=== PATIENT | female | born 1945 | race Caucasian/White ===

== ENCOUNTER 2023-08-23 14:54 | Outpatient (AMB) | payer MEDICARE, OTHER, SELFPAY ==
[2023-08-23 14:59] VITALS: BP 140/62; PULSE 63; RESP 12; O2SAT 93; BMI 31.2
--- NOTE | 2023-08-23 14:59 | A.OFFVIS_ITS ---
Intake Vital Signs 08/23/23 14:59 Height 5 ft 3 in Weight 176 lb BMI 31.2 BP 140/62 H Blood Pressure Location Lt brachial Position Sitting Respiration 12 Pulse 63 Pulse Source Pulse Oximeter Pulse Oximetry (%) 93 Oxygen Delivery Method Room Air Intake Visit Reasons: Shortness of breath Allergies naproxen [From Aleve] Adverse Reaction (Severe, Verified 08/23/23 15:01) urticaria Penicillins Adverse Reaction (Severe, Verified 08/23/23 15:01) urticaria Medication List - Last Reconciled 08/23/23 by Tonia Nick LPN aspirin (Adult Aspirin Regimen) 81 mg PO DAILY celecoxib 200 mg PO DAILY duloxetine 60 mg PO DAILY ferrous sulfate (FeroSul) 325 mg PO DAILY lorazepam 1 mg PO DAILY PRN losartan 25 mg PO DAILY multivitamin 1 tab PO DAILY omeprazole 40 mg PO DAILY tiotropium bromide 2.5 mcg/actuation (Spiriva Respimat) 2 puffs inhalation DAILY HPI HPI Comments History of Present Illness Details The patient is here for pulmonary evaluation. The patient is a 78 year woman with a known history of tobacco dependency quit more than 20 years ago who apparently was in usual state health until back in June which she underwent an elective back surgery. Postoperatively the patient was noted to be significantly hypoxic down to 70% and she did have a medical consultation. Apparently she has had episodes of hypoxia like this in the past after previous surgeries. During that hospitalization she did undergo a CTA that I personally reviewed with the patient. The patient did have moderate facet M a noted in addition to that did have significant ground-glass opacities and hazy opacities bilaterally but also more dense airspace disease suggesting pneumonia and a right lower lobe area. This is very suspicious for an aspiration event suggesting aspiration pneumonitis. In addition to that could have been iatrogenic from medications or anesthesia per the patient did recover she was discharged on oxygen although she was reluctant to use it so therefore she had a company pick it up. She still has shortness of breath with activity. She was placed on Spiriva she may have been taking it role wrong where she actually ran out of the medication in 2 weeks instead of in 4 weeks. The patient has not had any pulmonary function studies at this time. Her exam is significant only for coarse crackles at the bases. Not clear if this crackles are related to her postoperative. Or if she had the even previous to that. Since the patient is 2 months out of her surgery will be reasonable to try low-dose steroids in case she still has evidence of pneumonitis that is impacting her gas exchange. Therefore, will start her on low-dose prednisone at this time we did go for 6 minutes walk test the patient did desaturate down to about 86% have checked to his significant. The patient did recover quickly after stopping walking and she did improved to the low 90s mid 90s. Still the patient is reluctant to go back on oxygen. Explained to her the risk of not using oxygen in the patient understands the risks that she is taking. We will request an overnight oximetry however to address the question if she needs oxygen with sleep. She may consider using in this fashion unfortunately to the patient appears to have a foreign body that is related to the surgical intervention. The patient will be talking to her nurse surgeon to see what is the best approach to address this foreign body. The patient is concerned because her significant adverse effects to general anesthesia. [facility] Medical History (Updated 08/23/23 @ 20:23 by Murphy Santos MD) Hypoxia Pneumonitis COPD (chronic obstructive pulmonary disease) Review of Systems Const Denies fever(s) Eyes Denies change in vision ENT Reports dry mouth and Reports hoarseness Card Denies chest pain and Reports dyspnea on exertion Resp Reports cough, Reports dyspnea on exertion and Denies wheezing GI Reports no additional complaints Musc Reports abnormal gait and Reports back pain Skin/Breast Denies rash Neuro Reports abnormal gait Fredi/Lymph Denies easy bruising and Denies lymphadenopathy Aller/Immun Denies wheezing Physical Exam Vital Signs: Last Vital Signs Pulse 63 08/23/23 14:59 Resp 12 08/23/23 14:59 BP 140/62 H 08/23/23 14:59 Pulse Ox 93 08/23/23 14:59 Oxygen Delivery Method Room Air 08/23/23 14:59 BMI result Body Mass Index 31.2 Const General: comfortable HEENT Head: Yes normocephalic Neck Neck: Yes supple Chest Chest palpation & inspection: normal inspection of the chest Resp Effort & Inspection: normal respiratory effort Auscultation: rales bilateral at the base, no rhonchi, no wheezes and diminished lung sounds Cardio Heart sounds: S1 normal heart sound present and S2 normal heart sound present GI Palpation (GI): Soft to palpation Skin General skin exam: no rashes or lesions noted Extrem General: Yes no clubbing, cyanosis or edema Assessment & Plan Assessment & Plan (1) COPD (chronic obstructive pulmonary disease): Code(s): J44.9 - Chronic obstructive pulmonary disease, unspecified Qualifiers: COPD type: emphysema Emphysema type: centrilobular Qualified Code(s): J43.2 - Centrilobular emphysema (2) Pneumonitis: Code(s): J98.4 - Other disorders of lung (3) Hypoxia: Code(s): R09.02 - Hypoxemia Plan recommend oxygen supplementation, but the pt declines at this time stop Spiriva ASHLEE as needed low dose prednisone 10mg daily 20 days overnight oximetry PFTs F/U 6-8 weeks Orders: Orders Overnight Pulse Oximetry Today J44.9 - Chronic obstructive pulmonary disease, unspecified PFT pulmonary function test Today J43.2 - Centrilobular emphysema Medications: New prednisone 10 mg PO DAILY 20 tabs 1RF 20 days albuterol sulfate 90 mcg/actuation 2 inhalations inhalation Q6H PRN 18 grams 12RF shortness of breath or wheezing 30 days J44.9 - Chronic obstructive pulmonary disease, unspecified Coding Level of Care Code New Pt Level 4 (93914) Diagnoses Centrilobular emphysema J43.2 COPD type: emphysema Emphysema type: centrilobular Pneumonitis J98.4 Hypoxia R09.02 Time Spent (min) 45
== END 2023-08-23 15:44 | disposition home or self-care (01) ==
PROVIDERS: PCP Internal Medicine; Referring Provider Internal Medicine; Visit Provider Hospitalist
DX: J43.2 Centrilobular emphysema (principal); J98.4 Other disorders of lung; R09.02 Hypoxemia
CPT/HCPCS: 99204

== ENCOUNTER → 2023-08-23 14:54 | Outpatient (BNVA) | payer MEDICARE, OTHER, SELFPAY | PROVIDERS: PCP Internal Medicine; Referring Provider Internal Medicine; Visit Provider Hospitalist | DX: J43.2 Centrilobular emphysema (principal); J98.4 Other disorders of lung; R09.02 Hypoxemia | CPT/HCPCS: 99202 ==

== ENCOUNTER 2023-09-27 10:37 | Outpatient (REF) | payer MEDICARE, OTHER, SELFPAY ==
--- NOTE | 2023-09-27 11:14 | PFT_ITS ---
Flows: FEV1: 101 % of predicted at 1.83 L FVC: 134 % of predicted at 2.88 L FEV1/FVC: 64 % Bronchodilator response: Present Volumes: Total lung capacity: 75 % of predicted at 3.52 L Residual volume: 48 % of predicted at 1.01 L Slow vital capacity: 100 % of predicted at 2.51 L Expiratory reserve volume: 61 % of predicted at 0.37 L Diffusion capacity: Severely decreased, adjusts to being moderately decreased after correction for alveolar ventilation. Impression: Mild obstructive and mild restrictive ventilatory defect with positive bronchodilator response. Decreased diffusion capacity suggests emphysema. MTDD
== END 2023-09-27 10:38 | disposition home or self-care (01) ==
LOC: HO.RESP 10:37
PROVIDERS: PCP Internal Medicine; Visit Provider Hospitalist
DX: J43.2 Centrilobular emphysema (principal)
CPT/HCPCS: 94010; 94729

== ENCOUNTER → 2023-09-27 11:14 | Outpatient (BNV) | payer MEDICARE, OTHER, SELFPAY | PROVIDERS: PCP Internal Medicine; Visit Provider Internal Medicine Pulmonary Disease | DX: J43.2 Centrilobular emphysema (principal) | CPT/HCPCS: 94060; 94727; 94729 ==

== ENCOUNTER 2023-10-27 11:27 | Outpatient (AMB) | payer MEDICARE, OTHER, SELFPAY ==
[2023-10-27 11:42] VITALS: BP 130/74; PULSE 95; O2SAT 99; BMI 30.3
--- NOTE | 2023-10-27 11:42 | HO.NEPHOV ---
HPI HPI Comments History of Present Illness Details I had the pleasure of seeing Kadie in consultation for proteinuria. She is not a diabetic. She has hypertension and has been on calcium channel wale in the past which has been changed to losartan few months ago. She has back issues and had undergone surgery. She has history of renal stones. She denies any dysuria, hematuria, pedal edema, photosensitivity, epistaxis, skin rashes or any other systemic symptoms. She is going to see Dr. Murphy Santos for her pulmonary issues. She denies taking excessive nonsteroidal anti-inflammatories. She has no history of bone pain. Her renal functions have been normal. [facility] Medical History (Updated 10/27/23 @ 12:08 by Carlos Shelley MD) Emphysema, unspecified Anemia Spinal stenosis at L4-L5 level GERD (gastroesophageal reflux disease) Osteoporosis Osteoarthritis Migraine headache Hypercholesteremia Arthritis Hypertension Hypoxia Pneumonitis COPD (chronic obstructive pulmonary disease) Surgical History (Updated 10/27/23 @ 11:30 by Kesha Munoz MA) History of appendectomy History of repair of rotator cuff History of knee replacement, total Family History Father Cancer Mother Cancer Sister Cancer Social History (Updated 10/27/23 @ 11:47 by Kesha Munoz MA) Alcohol intake: current Comment: On occassion Patient Tobacco Use Status: Former Tobacco user Vital Signs 10/27/23 11:42 Height 5 ft 3 in Weight 171 lb 4 oz BMI 30.3 BP 130/74 Blood Pressure Location Rt brachial Position Sitting Pulse 95 Pulse Source Pulse Oximeter Pulse Oximetry (%) 99 Oxygen Delivery Method Room Air Physical Exam Vital Signs: Last Vital Signs Pulse 95 10/27/23 11:42 BP 130/74 10/27/23 11:42 Pulse Ox 99 10/27/23 11:42 Oxygen Delivery Method Room Air 10/27/23 11:42 BMI result Body Mass Index 30.3 Const General: comfortable and no acute distress Orientation/consciousness: patient oriented x3 HEENT Head: Yes normocephalic Mouth: Normal oral and palatal mucosa present Eyes EOM: EOMs intact bilaterally Neck Neck: Yes supple Resp Auscultation: clear to auscultation bilaterally Cardio Jugular venous distension: no JVD Rate: regular rate GI Palpation (GI): Soft to palpation Auscultation: normal bowel sounds General: Yes no CVA tenderness Back/Spine/Pelvis Back: no CVA tenderness Skin General skin exam: no rashes or lesions noted Neuro General: patient oriented x3 and moves all extremities Extrem General: Yes no pedal edema Assessment & Plan Assessment & Plan (1) Proteinuria: Code(s): R80.9 - Proteinuria, unspecified Qualifiers: Proteinuria type: other Qualified Code(s): R80.8 - Other proteinuria (2) Hypertension: Code(s): I10 - Essential (primary) hypertension Qualifiers: Hypertension type: primary hypertension Qualified Code(s): I10 - Essential (primary) hypertension Plan Kadie has hypertension and is currently on angiotensin receptor wale. She is detected to have proteinuria of unknown etiology. She does not take any excessive nonsteroidal anti-inflammatories. She has back issues and had undergone surgery. She is anemic and is iron deficient. She is not taking iron replacement. Her renal functions are normal. I have ordered workup including 24 hour urine collection for protein. I will continue to titrate the dose of or ARB based on data. She may need a renal ultrasound in the future if she needs a renal biopsy. There is no indication for the same at this moment in time. Further management is pending wellbeing data. All questions answered. Follow-up given. Orders: Orders Electrolytes Today I10 - Essential (primary) hypertension, R80.9 - Proteinuria, unspecified Creatinine Today I10 - Essential (primary) hypertension, R80.9 - Proteinuria, unspecified Complement C3 Today I10 - Essential (primary) hypertension, R80.9 - Proteinuria, unspecified Immunofixation Pnl, Serum Today I10 - Essential (primary) hypertension, R80.9 - Proteinuria, unspecified MARTHA Reflex Titer and Pattern Today I10 - Essential (primary) hypertension, R80.9 - Proteinuria, unspecified ANCA Vasculitides Today I10 - Essential (primary) hypertension, R80.9 - Proteinuria, unspecified Blood Urea Nitrogen Today I10 - Essential (primary) hypertension, R80.9 - Proteinuria, unspecified Protein, 24 Hr Urine Group Today I10 - Essential (primary) hypertension, R80.9 - Proteinuria, unspecified Complement C4 Today I10 - Essential (primary) hypertension, R80.9 - Proteinuria, unspecified Anti DNA DS Antibody Today I10 - Essential (primary) hypertension, R80.9 - Proteinuria, unspecified Phospholipase A2 Receptor Pnl Today I10 - Essential (primary) hypertension, R80.9 - Proteinuria, unspecified Myeloperoxidase Antibody Today I10 - Essential (primary) hypertension, R80.9 - Proteinuria, unspecified Proteinase 3 PR3 Antibodies Today I10 - Essential (primary) hypertension, R80.9 - Proteinuria, unspecified Anti Glomerular Basement Memb Today I10 - Essential (primary) hypertension, R80.9 - Proteinuria, unspecified Coding Level of Care Code New Pt Level 4 (98317) Diagnoses Other proteinuria R80.8 Proteinuria type: other Primary hypertension I10 Hypertension type: primary hypertension Results Reviewed Nephrology Results: No Data to Display
== END 2023-10-27 12:15 | disposition home or self-care (01) ==
PROVIDERS: PCP Internal Medicine; Visit Provider Internal Medicine Nephrology
DX: R80.8 Other proteinuria (principal); I10 Essential (primary) hypertension
CPT/HCPCS: 99204

== ENCOUNTER → 2023-10-27 11:27 | Outpatient (BNVA) | payer MEDICARE, OTHER, SELFPAY | PROVIDERS: PCP Internal Medicine; Visit Provider Internal Medicine Nephrology | DX: R80.8 Other proteinuria (principal); I10 Essential (primary) hypertension | CPT/HCPCS: 99202 ==

== ENCOUNTER 2023-10-28 14:32 | Outpatient (AMB) | payer MEDICARE, OTHER, SELFPAY ==
[2023-10-28 14:50] VITALS: PULSE 94; O2SAT 96; BMI 29.8
--- NOTE | 2023-10-28 14:50 | MHC.OFFVIS ---
Intake Vital Signs 10/28/23 14:50 Height 5 ft 3 in Weight 168 lb BMI 29.8 Pulse 94 Pulse Source Pulse Oximeter Pulse Oximetry (%) 96 Oxygen Delivery Method Room Air Intake Visit Reasons: pft results / shortness of breath [employer] Consultant Required: No Allergies naproxen [From Aleve] Adverse Reaction (Severe, Verified 10/28/23 14:53) urticaria Penicillins Adverse Reaction (Severe, Verified 10/28/23 14:53) urticaria HPI HPI Comments History of Present Illness Details The patient is a 78 year woman with a known history of tobacco dependency quit more than 20 years ago who apparently was in usual state health until back in June which she underwent an elective back surgery. Postoperatively the patient was noted to be significantly hypoxic down to 70% and she did have a medical consultation. Apparently she has had episodes of hypoxia like this in the past after previous surgeries. During that hospitalization she did undergo a CTA that I personally reviewed with the patient. The patient did have moderate facet M a noted in addition to that did have significant ground-glass opacities and hazy opacities bilaterally but also more dense airspace disease suggesting pneumonia and a right lower lobe area. This is very suspicious for an aspiration event suggesting aspiration pneumonitis. In addition to that could have been iatrogenic from medications or anesthesia per the patient did recover she was discharged on oxygen although she was reluctant to use it so therefore she had a company pick it up. She still has shortness of breath with activity. She was placed on Spiriva she may have been taking it role wrong where she actually ran out of the medication in 2 weeks instead of in 4 weeks. The patient has not had any pulmonary function studies at this time. Her exam is significant only for coarse crackles at the bases. Not clear if this crackles are related to her postoperative. Or if she had the even previous to that. Since the patient is 2 months out of her surgery will be reasonable to try low-dose steroids in case she still has evidence of pneumonitis that is impacting her gas exchange. Therefore, will start her on low-dose prednisone at this time we did go for 6 minutes walk test the patient did desaturate down to about 86% have checked to his significant. The patient did recover quickly after stopping walking and she did improved to the low 90s mid 90s. Still the patient is reluctant to go back on oxygen. Explained to her the risk of not using oxygen in the patient understands the risks that she is taking. We will request an overnight oximetry however to address the question if she needs oxygen with sleep. She may consider using in this fashion unfortunately to the patient appears to have a foreign body that is related to the surgical intervention. The patient will be talking to her nurse surgeon to see what is the best approach to address this foreign body. The patient is concerned because her significant adverse effects to general anesthesia. 10/28/2023 the patient is here for pulmonary follow-up visit. The patient overall His a little better. She did complete the low-dose prednisone to treat the pneumonitis. She still complains of dyspnea on exertion. Mild in severity. She did undergo pulmonary function studies which we personally reviewed. There were little unclear but appears that she does have a mild obstruction and also a significant diffusion impairment. We also did go for brief walking oximetry. the patient desaturated down to 88%. However, she quickly improved. will at this point optimize respiratory therapy by placing her on Trelegy. The patient is also interested in participating in pulmonary rehabilitation. I do believe this will be very helpful In improvement in her respiratory capacity. Will plan to follow-up in 4-6 months. If patient has any new issues she will call for an earlier assessment. [facility] Medical History (Updated 10/27/23 @ 12:08 by Carlos Shelley MD) Emphysema, unspecified Anemia Spinal stenosis at L4-L5 level GERD (gastroesophageal reflux disease) Osteoporosis Osteoarthritis Migraine headache Hypercholesteremia Arthritis Hypertension Hypoxia Pneumonitis COPD (chronic obstructive pulmonary disease) Surgical History (Updated 10/27/23 @ 11:30 by Kesha Munoz MA) History of appendectomy History of repair of rotator cuff History of knee replacement, total Family History Father Cancer Mother Cancer Sister Cancer Social History (Updated 10/27/23 @ 11:47 by Kesha Munoz MA) Alcohol intake: current Comment: On occassion Patient Tobacco Use Status: Former Tobacco user Review of Systems Const Denies fever(s) Eyes Denies change in vision ENT Reports dry mouth and Reports hoarseness Card Denies chest pain and Reports dyspnea on exertion Resp Reports cough, Reports dyspnea on exertion and Denies wheezing GI Reports no additional complaints Musc Reports abnormal gait and Reports back pain Skin/Breast Denies rash Neuro Reports abnormal gait Fredi/Lymph Denies easy bruising and Denies lymphadenopathy Aller/Immun Denies wheezing Physical Exam Vital Signs: Last Vital Signs Pulse 94 10/28/23 14:50 Pulse Ox 96 10/28/23 14:50 Oxygen Delivery Method Room Air 10/28/23 14:50 BMI result Body Mass Index 29.8 Const General: comfortable HEENT Head: Yes normocephalic Neck Neck: Yes supple Chest Chest palpation & inspection: normal inspection of the chest Resp Effort & Inspection: normal respiratory effort and prolonged expiratory phase Auscultation: no rales, no rhonchi, no wheezes and diminished lung sounds Cardio Heart sounds: S1 normal heart sound present and S2 normal heart sound present GI Palpation (GI): Soft to palpation Skin General skin exam: no rashes or lesions noted Extrem General: Yes no clubbing, cyanosis or edema Assessment & Plan Assessment & Plan (1) COPD (chronic obstructive pulmonary disease): Code(s): J44.9 - Chronic obstructive pulmonary disease, unspecified Qualifiers: COPD type: emphysema Emphysema type: centrilobular Qualified Code(s): J43.2 - Centrilobular emphysema (2) Pneumonitis: Code(s): J98.4 - Other disorders of lung (3) Hypoxia: Code(s): R09.02 - Hypoxemia Plan stop Spiriva start Trelegy start Pulmonary rehab at [facility] per the pt's request ASHLEE as needed recommend oxygen supplementation with activity, but the pt declines at this time. Overnight oximetry was not done F/U 4-6 months Orders: Orders Pulmonary Rehab 10/28/23 J44.9 - Chronic obstructive pulmonary disease, unspecified Medications: New [id number] 100-62.5-25 mcg (Trelegy Ellipta) 1 inh inhalation DAILY 30 days 60 ea 11RF J44.9 - Chronic obstructive pulmonary disease, unspecified Coding Level of Care Code Est Pt Level 4 (00397) Diagnoses Centrilobular emphysema J43.2 COPD type: emphysema Emphysema type: centrilobular Pneumonitis J98.4 Hypoxia R09.02 Time Spent (min) 17
== END 2023-10-28 15:18 | disposition home or self-care (01) ==
PROVIDERS: PCP Internal Medicine; Visit Provider Hospitalist
DX: J43.2 Centrilobular emphysema (principal); J98.4 Other disorders of lung; R09.02 Hypoxemia
CPT/HCPCS: 99214

== ENCOUNTER → 2023-10-28 14:32 | Outpatient (BNVA) | payer MEDICARE, OTHER, SELFPAY | PROVIDERS: PCP Internal Medicine; Visit Provider Hospitalist | DX: J43.2 Centrilobular emphysema (principal); J98.4 Other disorders of lung; R09.02 Hypoxemia | CPT/HCPCS: 99212 ==

== ENCOUNTER 2024-05-01 10:57 | Outpatient (AMB) | payer MEDICARE, OTHER, SELFPAY ==
--- NOTE | 2024-05-01 11:14 | A.OFFVIS_ITS ---
Vital Signs 05/01/24 11:16 Height 5 ft 3 in Weight 172 lb BMI 30.5 Pulse 90 Pulse Source Pulse Oximeter Pulse Oximetry (%) 92 Oxygen Delivery Method Room Air Intake Visit Reasons: Shortness of breath Carder Blankets Required: No Allergies naproxen [From Aleve] Adverse Reaction (Severe, Verified 05/01/24 11:18) urticaria Penicillins Adverse Reaction (Severe, Verified 05/01/24 11:18) urticaria HPI Comments Details: The patient is a 79 year woman with a known history of tobacco dependency quit more than 20 years ago who apparently was in usual state health until back in June which she underwent an elective back surgery. Postoperatively the patient was noted to be significantly hypoxic down to 70% and she did have a medical consultation. Apparently she has had episodes of hypoxia like this in the past after previous surgeries. During that hospitalization she did undergo a CTA that I personally reviewed with the patient. The patient did have moderate facet M a noted in addition to that did have significant ground-glass opacities and hazy opacities bilaterally but also more dense airspace disease suggesting pneumonia and a right lower lobe area. This is very suspicious for an aspiration event suggesting aspiration pneumonitis. In addition to that could have been iatrogenic from medications or anesthesia per the patient did recover she was discharged on oxygen although she was reluctant to use it so therefore she had a company pick it up. She still has shortness of breath with activity. She was placed on Spiriva she may have been taking it role wrong where she actually ran out of the medication in 2 weeks instead of in 4 weeks. The patient has not had any pulmonary function studies at this time. Her exam is significant only for coarse crackles at the bases. Not clear if this crackles are related to her postoperative. Or if she had the even previous to that. Since the patient is 2 months out of her surgery will be reasonable to try low-dose steroids in case she still has evidence of pneumonitis that is impacting her gas exchange. Therefore, will start her on low-dose prednisone at this time we did go for 6 minutes walk test the patient did desaturate down to about 86% have checked to his significant. The patient did recover quickly after stopping walking and she did improved to the low 90s mid 90s. Still the patient is reluctant to go back on oxygen. Explained to her the risk of not using oxygen in the patient understands the risks that she is taking. We will request an overnight oximetry however to address the question if she needs oxygen with sleep. She may consider using in this fashion unfortunately to the patient appears to have a foreign body that is related to the surgical intervention. The patient will be talking to her nurse surgeon to see what is the best approach to address this foreign body. The patient is concerned because her significant adverse effects to general anesthesia. 10/28/2023 the patient is here for pulmonary follow-up visit. The patient overall His a little better. She did complete the low-dose prednisone to treat the pneumonitis. She still complains of dyspnea on exertion. Mild in severity. She did undergo pulmonary function studies which we personally reviewed. There were little unclear but appears that she does have a mild obstruction and also a significant diffusion impairment. We also did go for brief walking oximetry. the patient desaturated down to 88%. However, she quickly improved. will at this point optimize respiratory therapy by placing her on Trelegy. The patient is also interested in participating in pulmonary rehabilitation. I do believe this will be very helpful In improvement in her respiratory capacity. Will plan to follow-up in 4-6 months. If patient has any new issues she will call for an earlier assessment. 05/01/2024 the patient is here for a pulmonary follow-up visit. Overall she is doing well. She denies any significant dyspnea on exertion. Denies any worsening cough. She did have a hard time with the Trelegy inhaler and also other inhaled cortical steroid inhalers. She was switched over to Stiolto. She seems to tolerate that better although she is not sure how to use it. She did bring it in and we did give her placebo in order for her to practice. She did do well after she was instructed how to use it and she felt more comfortable with it. Therefore she will continue. She is wondering if this is effective for. I do believe that is going to be partially effective in helping her airway obstruction although her major issue is a diffusion impairment due to her significant emphysema. The patient also has other issues including restrictive lung disease that minimizes her lung expansion in therefore Worsens also her gas exchange. The patient did undergo a 6 minute walk test again. The patient still desaturates down to 87% with activity. And then when she realized she was hypoxic she started panting and that also decrease her oxygen further to 84%. Once the patient has stopped and she rested quickly her oxygen improved to 92%. Therefore, the patient does qualify for oxygen although she still reluctant to use it. She is however willing to use it at nighttime. Will go ahead and request another overnight oximetry for her to do at home on room air. In the meantime she did not go to pulmonary rehabilitation because it was too far from home. I did give her the information about the online pulmonary rehabilitation can look into. We also reviewed her CT scan of the chest that she had a [facility] back in 07/06/2023. The patient did have some inflammatory changes but in addition to that she did have a 3 mm pulmonary nodule. Therefore, with a heart risk of cancer the patient does need to have repeat CT scan 07/06/2024. If the patient has any worsening symptoms we may have to get a CT scan sooner. Therefore, the patient will continue her current respiratory therapy and will start rehab and will look into following up after her CT scan. If she does need oxygen at nighttime based on her overnight oximetry will call to set up the oxygen. [facility] Medical History (Updated 10/27/23 @ 12:08 by Carlos Shelley MD) Emphysema, unspecified Anemia Spinal stenosis at L4-L5 level GERD (gastroesophageal reflux disease) Osteoporosis Osteoarthritis Migraine headache Hypercholesteremia Arthritis Hypertension Hypoxia Pneumonitis COPD (chronic obstructive pulmonary disease) Surgical History (Updated 10/27/23 @ 11:30 by Kesha Munoz MA) History of appendectomy History of repair of rotator cuff History of knee replacement, total Family History Father Cancer Mother Cancer Sister Cancer Social History (Updated 10/27/23 @ 11:47 by Kesha Munoz MA) Alcohol intake: current Comment: On occassion Patient Tobacco Use Status: Former Tobacco user Review of Systems Const Denies fever(s) Eyes Denies change in vision ENT Reports dry mouth and Reports hoarseness Card Denies chest pain and Reports dyspnea on exertion Resp Reports cough, Reports dyspnea on exertion and Denies wheezing GI Reports no additional complaints Musc Reports abnormal gait and Reports back pain Skin/Breast Denies rash Neuro Reports abnormal gait Fredi/Lymph Denies easy bruising and Denies lymphadenopathy Aller/Immun Denies wheezing Physical Exam Vital Signs: Last Vital Signs Pulse 90 05/01/24 11:16 Pulse Ox 92 07/16/24 11:16 Oxygen Delivery Method Room Air 05/01/24 11:16 BMI result Body Mass Index 30.5 Const General: comfortable HEENT Head: Yes normocephalic Neck Neck: Yes supple Chest Chest palpation & inspection: normal inspection of the chest Resp Effort & Inspection: normal respiratory effort Auscultation: no rales, no rhonchi, no wheezes and diminished lung sounds Cardio Heart sounds: S1 normal heart sound present and S2 normal heart sound present GI Palpation (GI): Soft to palpation Skin General skin exam: no rashes or lesions noted Extrem General: Yes no clubbing, cyanosis or edema Office Procedures 6 Minute Walk Time:: 22:27 SPO2 % at rest: 92 Pulse at rest: 89 SPO2 % during excercise: 84 Pulse during excercise: 102 Distance in yards walked: 200 Tonya Score: 4 [id number] - 6 Minute Walk Assessment & Plan Assessment & Plan (1) COPD (chronic obstructive pulmonary disease): Code(s): J44.9 - Chronic obstructive pulmonary disease, unspecified Category: Medical Qualifiers: COPD type: emphysema Emphysema type: centrilobular Qualified Code(s): J43.2 - Centrilobular emphysema (2) Pneumonitis: Code(s): J98.4 - Other disorders of lung Category: Medical (3) Hypoxia: Code(s): R09.02 - Hypoxemia Category: Medical Plan continue Stiolto start Pulmonary rehab on line [facility] as needed recommend oxygen supplementation with activity, but the pt declines at this time. Overnight oximetry CT chest 06/2024 to f/u pulmonary nodule, pt prefers [facility] F/U 3 months Orders: Orders CT chest wo IV con 06/17/24 R91.1 - Solitary pulmonary nodule Overnight Pulse Oximetry Today J43.2 - Centrilobular emphysema Coding Level of Care Code Est Pt Level 4 (19270) Diagnoses Centrilobular emphysema J43.2 COPD type: emphysema Emphysema type: centrilobular Pneumonitis J98.4 Hypoxia R09.02 CPT Codes Coding ([id number]) Time Spent (min) 17
[2024-05-01 11:16] VITALS: PULSE 90; O2SAT 92; BMI 30.5
[2024-05-01 22:25] VITALS: PULSE 89; O2SAT 92
== END 2024-05-01 11:55 | disposition home or self-care (01) ==
PROVIDERS: PCP Internal Medicine; Visit Provider Hospitalist
DX: J43.2 Centrilobular emphysema (principal); J98.4 Other disorders of lung; R09.02 Hypoxemia
CPT/HCPCS: 94618; 99214

== ENCOUNTER → 2024-05-01 10:57 | Outpatient (BNVA) | payer MEDICARE, OTHER, SELFPAY | PROVIDERS: PCP Internal Medicine; Visit Provider Hospitalist | DX: J43.2 Centrilobular emphysema (principal); J98.4 Other disorders of lung; R09.02 Hypoxemia; R91.1 Solitary pulmonary nodule; Z87.891 Personal history of nicotine dependence | CPT/HCPCS: 94618; 99212 ==

== ENCOUNTER 2024-07-12 13:18 | Outpatient (AMB) | payer MEDICARE, OTHER, SELFPAY ==
[2024-07-12 13:35] VITALS: BP 134/70; PULSE 105; O2SAT 96; BMI 30.3
--- NOTE | 2024-07-12 13:35 | MHC.OFFVIS ---
Vital Signs 07/12/24 13:35 Height 5 ft 3 in Weight 171 lb BMI 30.3 BP 134/70 Blood Pressure Location Lt brachial Position Sitting Pulse 105 H Pulse Source Pulse Oximeter Pulse Oximetry (%) 96 Oxygen Delivery Method Room Air Intake Visit Reasons: Shortness of breath Day [employer] Counselor Required: No Allergies naproxen [From Aleve] Adverse Reaction (Severe, Verified 07/12/24 13:41) urticaria Penicillins Adverse Reaction (Severe, Verified 07/12/24 13:41) urticaria HPI Comments Details: The patient is a 79 year woman with a known history of tobacco dependency quit more than 20 years ago who apparently was in usual state health until back in June which she underwent an elective back surgery. Postoperatively the patient was noted to be significantly hypoxic down to 70% and she did have a medical consultation. Apparently she has had episodes of hypoxia like this in the past after previous surgeries. During that hospitalization she did undergo a CTA that I personally reviewed with the patient. The patient did have moderate facet M a noted in addition to that did have significant ground-glass opacities and hazy opacities bilaterally but also more dense airspace disease suggesting pneumonia and a right lower lobe area. This is very suspicious for an aspiration event suggesting aspiration pneumonitis. In addition to that could have been iatrogenic from medications or anesthesia per the patient did recover she was discharged on oxygen although she was reluctant to use it so therefore she had a company pick it up. She still has shortness of breath with activity. She was placed on Spiriva she may have been taking it role wrong where she actually ran out of the medication in 2 weeks instead of in 4 weeks. The patient has not had any pulmonary function studies at this time. Her exam is significant only for coarse crackles at the bases. Not clear if this crackles are related to her postoperative. Or if she had the even previous to that. Since the patient is 2 months out of her surgery will be reasonable to try low-dose steroids in case she still has evidence of pneumonitis that is impacting her gas exchange. Therefore, will start her on low-dose prednisone at this time we did go for 6 minutes walk test the patient did desaturate down to about 86% have checked to his significant. The patient did recover quickly after stopping walking and she did improved to the low 90s mid 90s. Still the patient is reluctant to go back on oxygen. Explained to her the risk of not using oxygen in the patient understands the risks that she is taking. We will request an overnight oximetry however to address the question if she needs oxygen with sleep. She may consider using in this fashion unfortunately to the patient appears to have a foreign body that is related to the surgical intervention. The patient will be talking to her nurse surgeon to see what is the best approach to address this foreign body. The patient is concerned because her significant adverse effects to general anesthesia. 10/28/2023 the patient is here for pulmonary follow-up visit. The patient overall His a little better. She did complete the low-dose prednisone to treat the pneumonitis. She still complains of dyspnea on exertion. Mild in severity. She did undergo pulmonary function studies which we personally reviewed. There were little unclear but appears that she does have a mild obstruction and also a significant diffusion impairment. We also did go for brief walking oximetry. the patient desaturated down to 88%. However, she quickly improved. will at this point optimize respiratory therapy by placing her on Trelegy. The patient is also interested in participating in pulmonary rehabilitation. I do believe this will be very helpful In improvement in her respiratory capacity. Will plan to follow-up in 4-6 months. If patient has any new issues she will call for an earlier assessment. 05/01/2024 the patient is here for a pulmonary follow-up visit. Overall she is doing well. She denies any significant dyspnea on exertion. Denies any worsening cough. She did have a hard time with the Trelegy inhaler and also other inhaled cortical steroid inhalers. She was switched over to Stiolto. She seems to tolerate that better although she is not sure how to use it. She did bring it in and we did give her placebo in order for her to practice. She did do well after she was instructed how to use it and she felt more comfortable with it. Therefore she will continue. She is wondering if this is effective for. I do believe that is going to be partially effective in helping her airway obstruction although her major issue is a diffusion impairment due to her significant emphysema. The patient also has other issues including restrictive lung disease that minimizes her lung expansion in therefore Worsens also her gas exchange. The patient did undergo a 6 minute walk test again. The patient still desaturates down to 87% with activity. And then when she realized she was hypoxic she started panting and that also decrease her oxygen further to 84%. Once the patient has stopped and she rested quickly her oxygen improved to 92%. Therefore, the patient does qualify for oxygen although she still reluctant to use it. She is however willing to use it at nighttime. Will go ahead and request another overnight oximetry for her to do at home on room air. In the meantime she did not go to pulmonary rehabilitation because it was too far from home. I did give her the information about the online pulmonary rehabilitation can look into. We also reviewed her CT scan of the chest that she had a [facility] back in 07/06/2023. The patient did have some inflammatory changes but in addition to that she did have a 3 mm pulmonary nodule. Therefore, with a heart risk of cancer the patient does need to have repeat CT scan 07/06/2024. If the patient has any worsening symptoms we may have to get a CT scan sooner. Therefore, the patient will continue her current respiratory therapy and will start rehab and will look into following up after her CT scan. If she does need oxygen at nighttime based on her overnight oximetry will call to set up the oxygen. 07/12/2024 the patient is here for a pulmonary follow-up visit. Overall she is in good spirits. She is doing well. She is very limited from a physical standpoint as far as her capacity to walk and also go up a flight of stairs. She has severe back pain that also limits her significantly. Her oxygen today is reassuring. She did not requalify for oxygen at least when she came in. She did have a CT scan of the chest that we personally reviewed. She does have a new 4 mm pulmonary nodule. I did encourage her to have another CT scan in a year's time. Her other 3 mm nodule appears to be stable unchanged. She unfortunately has extensive emphysema and she is aware of that. At this point the patient is doing well. She will start taking some Mucinex for a productive cough that she has. If she is not better she can take a course of doxycycline to see if we can clear it up. Otherwise we can consider switching her inhalers but she is doing good on the Stiolto so would want to change that specially that she tried and failed multiple inhalers already. Will try to minimize the use of inhaled steroids and she has had reactions to that in the past. [facility] Medical History (Updated 10/27/23 @ 12:08 by Carlos Shelley MD) Emphysema, unspecified Anemia Spinal stenosis at L4-L5 level GERD (gastroesophageal reflux disease) Osteoporosis Osteoarthritis Migraine headache Hypercholesteremia Arthritis Hypertension Hypoxia Pneumonitis COPD (chronic obstructive pulmonary disease) Surgical History (Updated 10/27/23 @ 11:30 by Kesha Munoz MA) History of appendectomy History of repair of rotator cuff History of knee replacement, total Family History Father Cancer Mother Cancer Sister Cancer Social History Alcohol intake: current Comment: On occassion Patient Tobacco Use Status: Former Tobacco user Review of Systems Const Reports daytime sleepiness, Reports difficulty sleeping and Denies fever(s) Eyes Denies change in vision ENT Reports dry mouth and Reports hoarseness Card Denies chest pain and Reports dyspnea on exertion Resp Reports cough, Reports dyspnea on exertion and Denies wheezing GI Reports no additional complaints Musc Reports abnormal gait and Reports back pain Skin/Breast Denies rash Neuro Reports abnormal gait Fredi/Lymph Denies easy bruising and Denies lymphadenopathy Aller/Immun Denies wheezing Physical Exam Vital Signs: Last Vital Signs Pulse 105 H 07/12/24 13:35 BP 134/70 07/12/24 13:35 Pulse Ox 96 07/12/24 13:35 Oxygen Delivery Method Room Air 07/12/24 13:35 BMI result Body Mass Index 30.3 Const General: comfortable HEENT Head: Yes normocephalic Neck Neck: Yes supple Chest Chest palpation & inspection: normal inspection of the chest Resp Effort & Inspection: normal respiratory effort Auscultation: no rales, no rhonchi, no wheezes and diminished lung sounds Cardio Heart sounds: S1 normal heart sound present and S2 normal heart sound present GI Palpation (GI): Soft to palpation Skin General skin exam: no rashes or lesions noted Extrem General: Yes no clubbing, cyanosis or edema Assessment & Plan Assessment & Plan (1) COPD (chronic obstructive pulmonary disease): Code(s): J44.9 - Chronic obstructive pulmonary disease, unspecified Category: Medical Qualifiers: COPD type: emphysema Emphysema type: centrilobular Qualified Code(s): J43.2 - Centrilobular emphysema (2) Pneumonitis: Code(s): J98.4 - Other disorders of lung Category: Medical (3) Hypoxia: Code(s): R09.02 - Hypoxemia Category: Medical Plan continue Stiolto [facility]LEE as needed recommend oxygen supplementation with activity, but the pt declines at this time. start Mucinex, if no better, then will take Doxycycline x [address] chest 06/2025 to f/u pulmonary nodules, pt prefers [facility] F/U 12 months Medications: New doxycycline hyclate 100 mg PO BID 20 caps 0RF 10 days Coding Level of Care Code Est Pt Level 4 (10072) Diagnoses Centrilobular emphysema J43.2 COPD type: emphysema Emphysema type: centrilobular Pneumonitis J98.4 Hypoxia R09.02 Time Spent (min) 17
== END 2024-07-12 14:08 | disposition home or self-care (01) ==
PROVIDERS: PCP Internal Medicine; Visit Provider Hospitalist
DX: J43.2 Centrilobular emphysema (principal); J98.4 Other disorders of lung; R09.02 Hypoxemia
CPT/HCPCS: 99214

== ENCOUNTER → 2024-07-12 13:18 | Outpatient (BNVA) | payer MEDICARE, OTHER, SELFPAY | PROVIDERS: PCP Internal Medicine; Visit Provider Hospitalist | DX: J43.2 Centrilobular emphysema (principal); J98.4 Other disorders of lung; R09.02 Hypoxemia; Z87.891 Personal history of nicotine dependence | CPT/HCPCS: 99212 ==

== ENCOUNTER 2025-01-11 09:56 | Outpatient (AMB) | payer MEDICARE, OTHER, SELFPAY ==
[2025-01-11 10:01] VITALS: BP 128/62; PULSE 90; O2SAT 94
--- NOTE | 2025-01-11 10:01 | MHC.OFFVIS ---
Vital Signs 01/11/25 10:01 Height 53 ft Weight 171 lb BMI 0.3 BP 128/62 Blood Pressure Location Lt brachial Position Sitting Pulse 90 Pulse Source Pulse Oximeter Pulse Oximetry (%) 94 Oxygen Delivery Method Room Air Intake Visit Reasons: dyspnea with exertion Animal Care Attendant Required: No Allergies naproxen [From Aleve] Adverse Reaction (Severe, Verified 01/11/25 10:04) urticaria Penicillins Adverse Reaction (Severe, Verified 01/11/25 10:04) urticaria HPI Comments Details: The patient is a 79 year woman with a known history of tobacco dependency quit more than 20 years ago who apparently was in usual state health until back in June which she underwent an elective back surgery. Postoperatively the patient was noted to be significantly hypoxic down to 70% and she did have a medical consultation. Apparently she has had episodes of hypoxia like this in the past after previous surgeries. During that hospitalization she did undergo a CTA that I personally reviewed with the patient. The patient did have moderate facet M a noted in addition to that did have significant ground-glass opacities and hazy opacities bilaterally but also more dense airspace disease suggesting pneumonia and a right lower lobe area. This is very suspicious for an aspiration event suggesting aspiration pneumonitis. In addition to that could have been iatrogenic from medications or anesthesia per the patient did recover she was discharged on oxygen although she was reluctant to use it so therefore she had a company pick it up. She still has shortness of breath with activity. She was placed on Spiriva she may have been taking it role wrong where she actually ran out of the medication in 2 weeks instead of in 4 weeks. The patient has not had any pulmonary function studies at this time. Her exam is significant only for coarse crackles at the bases. Not clear if this crackles are related to her postoperative. Or if she had the even previous to that. Since the patient is 2 months out of her surgery will be reasonable to try low-dose steroids in case she still has evidence of pneumonitis that is impacting her gas exchange. Therefore, will start her on low-dose prednisone at this time we did go for 6 minutes walk test the patient did desaturate down to about 86% have checked to his significant. The patient did recover quickly after stopping walking and she did improved to the low 90s mid 90s. Still the patient is reluctant to go back on oxygen. Explained to her the risk of not using oxygen in the patient understands the risks that she is taking. We will request an overnight oximetry however to address the question if she needs oxygen with sleep. She may consider using in this fashion unfortunately to the patient appears to have a foreign body that is related to the surgical intervention. The patient will be talking to her nurse surgeon to see what is the best approach to address this foreign body. The patient is concerned because her significant adverse effects to general anesthesia. 10/28/2023 the patient is here for pulmonary follow-up visit. The patient overall His a little better. She did complete the low-dose prednisone to treat the pneumonitis. She still complains of dyspnea on exertion. Mild in severity. She did undergo pulmonary function studies which we personally reviewed. There were little unclear but appears that she does have a mild obstruction and also a significant diffusion impairment. We also did go for brief walking oximetry. the patient desaturated down to 88%. However, she quickly improved. will at this point optimize respiratory therapy by placing her on Trelegy. The patient is also interested in participating in pulmonary rehabilitation. I do believe this will be very helpful In improvement in her respiratory capacity. Will plan to follow-up in 4-6 months. If patient has any new issues she will call for an earlier assessment. 05/01/2024 the patient is here for a pulmonary follow-up visit. Overall she is doing well. She denies any significant dyspnea on exertion. Denies any worsening cough. She did have a hard time with the Trelegy inhaler and also other inhaled cortical steroid inhalers. She was switched over to Stiolto. She seems to tolerate that better although she is not sure how to use it. She did bring it in and we did give her placebo in order for her to practice. She did do well after she was instructed how to use it and she felt more comfortable with it. Therefore she will continue. She is wondering if this is effective for. I do believe that is going to be partially effective in helping her airway obstruction although her major issue is a diffusion impairment due to her significant emphysema. The patient also has other issues including restrictive lung disease that minimizes her lung expansion in therefore Worsens also her gas exchange. The patient did undergo a 6 minute walk test again. The patient still desaturates down to 87% with activity. And then when she realized she was hypoxic she started panting and that also decrease her oxygen further to 84%. Once the patient has stopped and she rested quickly her oxygen improved to 92%. Therefore, the patient does qualify for oxygen although she still reluctant to use it. She is however willing to use it at nighttime. Will go ahead and request another overnight oximetry for her to do at home on room air. In the meantime she did not go to pulmonary rehabilitation because it was too far from home. I did give her the information about the online pulmonary rehabilitation can look into. We also reviewed her CT scan of the chest that she had a [facility] back in 07/06/2023. The patient did have some inflammatory changes but in addition to that she did have a 3 mm pulmonary nodule. Therefore, with a heart risk of cancer the patient does need to have repeat CT scan 07/06/2024. If the patient has any worsening symptoms we may have to get a CT scan sooner. Therefore, the patient will continue her current respiratory therapy and will start rehab and will look into following up after her CT scan. If she does need oxygen at nighttime based on her overnight oximetry will call to set up the oxygen. 07/12/2024 the patient is here for a pulmonary follow-up visit. Overall she is in good spirits. She is doing well. She is very limited from a physical standpoint as far as her capacity to walk and also go up a flight of stairs. She has severe back pain that also limits her significantly. Her oxygen today is reassuring. She did not requalify for oxygen at least when she came in. She did have a CT scan of the chest that we personally reviewed. She does have a new 4 mm pulmonary nodule. I did encourage her to have another CT scan in a year's time. Her other 3 mm nodule appears to be stable unchanged. She unfortunately has extensive emphysema and she is aware of that. At this point the patient is doing well. She will start taking some Mucinex for a productive cough that she has. If she is not better she can take a course of doxycycline to see if we can clear it up. Otherwise we can consider switching her inhalers but she is doing good on the Stiolto so would want to change that specially that she tried and failed multiple inhalers already. Will try to minimize the use of inhaled steroids and she has had reactions to that in the past. 01/11/2025 the patient is here for a pulmonary follow-up visit. She continues to have significant dyspnea on exertion. Moderate severity. Also has fatigue. She was recently diagnosed with anemia. She has been evaluated by primary care and will be seen by Hematology soon. She continues her respiratory medications but they do not seem to be helping her. Therefore she has not been using regularly. We did review her CT scan that she had back in the fall 2023 demonstrating extensive emphysema. Stable nodular densities. The patient did go for walking oximetry today. She is quickly desaturated to 86%. The patient was placed on 2 L pulse via a portable oxygen concentrator improving her pulse ox to 98% at rest and 94% with activity. The patient needs to start oxygen supplementation with activity at this time. She also would benefit from oxygen supplementation while sleeping. She did have an overnight oximetry also demonstrating significant hypoxia. Therefore she would also use the oxygen at nighttime. The patient also will have blood work. Her hemoglobin actually came back to be 8.2. She has blood work with her primary care doctor next week. For now she does have to go for blood transfusion but she needs to monitor closely her symptoms and her blood test. [facility] Medical History (Updated 01/11/25 @ 13:24 by Murphy Santos MD) Emphysema, unspecified Anemia Spinal stenosis at L4-L5 level GERD (gastroesophageal reflux disease) Osteoporosis Osteoarthritis Migraine headache Hypercholesteremia Arthritis Hypertension Hypoxia Pneumonitis COPD (chronic obstructive pulmonary disease) Surgical History (Updated 10/27/23 @ 11:30 by Kesha Munoz MA) History of appendectomy History of repair of rotator cuff History of knee replacement, total Family History Father Cancer Mother Cancer Sister Cancer Social History Alcohol intake: current Comment: On occassion Patient Tobacco Use Status: Former Tobacco user Review of Systems Const Reports daytime sleepiness, Reports difficulty sleeping and Denies fever(s) Eyes Denies change in vision ENT Reports dry mouth Card Denies chest pain and Reports dyspnea on exertion Resp Reports cough, Reports dyspnea on exertion and Denies wheezing GI Reports no additional complaints Musc Reports abnormal gait and Reports back pain Skin/Breast Denies rash Neuro Reports abnormal gait Fredi/Lymph Denies easy bruising and Denies lymphadenopathy Aller/Immun Denies wheezing Physical Exam Vital Signs: Last Vital Signs Pulse 90 01/11/25 10:01 BP 128/62 01/11/25 10:01 Pulse Ox 94 01/11/25 10:01 Oxygen Delivery Method Room Air 01/11/25 10:01 BMI result Body Mass Index 0.3 Const General: comfortable HEENT Head: Yes normocephalic Neck Neck: Yes supple Chest Chest palpation & inspection: normal inspection of the chest Resp Effort & Inspection: normal respiratory effort Auscultation: no rales, no rhonchi, no wheezes and diminished lung sounds Cardio Heart sounds: S1 normal heart sound present and S2 normal heart sound present GI Palpation (GI): Soft to palpation Skin General skin exam: no rashes or lesions noted Extrem General: Yes no clubbing, cyanosis or edema Office Procedures 6 Minute Walk Time:: 21:57 SPO2 % at rest: 94 Pulse at rest: 78 SPO2 % during excercise: 86 Pulse during excercise: 97 Distance in yards walked: 200 Tonya Score: 6 Supplemental Oxygen: Pt desaturate with activity to 86% on RA, placed on 2L/pulse and pained pox 93% with activity 42229 - 6 Minute Walk Assessment & Plan Assessment & Plan (1) COPD (chronic obstructive pulmonary disease): Code(s): J44.9 - Chronic obstructive pulmonary disease, unspecified Category: Medical Qualifiers: COPD type: emphysema Emphysema type: centrilobular Qualified Code(s): J43.2 - Centrilobular emphysema (2) Hypoxia: Code(s): R09.02 - Hypoxemia Category: Medical (3) Anemia: Code(s): D64.9 - Anemia, unspecified Category: Medical Qualifiers: Anemia type: iron deficiency Iron deficiency anemia type: unspecified iron deficiency Qualified Code(s): D50.9 - Iron deficiency anemia, unspecified Plan stop Stiolto ASHLEE as needed recommend oxygen supplementation with activity, start POC 2L/pulse with activity and 2L/min via nasal cannula while sleeping CT chest 06/2025 to f/u pulmonary nodules, pt prefers [facility] Will f/u with Hematology and PCP F/U 4-6 months Orders: Orders Complete Blood Count Auto Diff 01/11/25 D64.9 - Anemia, unspecified, J43.2 - Centrilobular emphysema Venous Blood Gas 01/11/25 D64.9 - Anemia, unspecified, J43.2 - Centrilobular emphysema Basic Metabolic Panel 01/11/25 D64.9 - Anemia, unspecified, J43.2 - Centrilobular emphysema Ferritin 01/11/25 D64.9 - Anemia, unspecified, J43.2 - Centrilobular emphysema Type and Screen 01/11/25 D64.9 - Anemia, unspecified, J43.2 - Centrilobular emphysema Troponin-I High Sensitivity 01/11/25 D64.9 - Anemia, unspecified, J43.2 - Centrilobular emphysema Coding Level of Care Code Est Pt Level 4 (69699) Complex EM visit Add On G2211 Diagnoses Centrilobular emphysema J43.2 COPD type: emphysema Emphysema type: centrilobular Hypoxia R09.02 Iron deficiency anemia, unspecified iron deficiency anemia type D50.9 Anemia type: iron deficiency Iron deficiency anemia type: unspecified iron deficiency CPT Codes Coding ([id number]) Time Spent (min) 18
[2025-01-13 21:55] VITALS: PULSE 78; O2SAT 94
== END 2025-01-11 10:34 | disposition home or self-care (01) ==
LOC: HO.HPS 09:56
PROVIDERS: PCP Internal Medicine; Visit Provider Hospitalist
DX: J43.2 Centrilobular emphysema (principal); R09.02 Hypoxemia; D50.9 Iron deficiency anemia, unspecified
CPT/HCPCS: 94618; 99214; G2211

== ENCOUNTER 2025-01-11 09:56 | Outpatient (REF) | payer MEDICARE, OTHER, SELFPAY ==
[2025-01-11 11:26] LABS: MANUAL DIFF FLAG NO
[2025-01-11 11:31] LABS: Venous Blood Gas Refer to POC result
[2025-01-11 11:31] LABS: Basophils Absolute Auto 0.1 X10*3/uL (0.0-0.2); Basophils Percent Auto 1.4 % (0-2); Eosinophils Absolute Auto 0.4 X10*3/uL (0.0-0.4); Eosinophils Percent Auto 5.1 % (0-4); Hematocrit 27.9 % (37.0-47.0); Hemoglobin 8.2 g/dl (12.0-16.0); Imm Gran Abs Auto 0.03 X10*3/uL (0.00-0.03); Imm Gran Pct Auto 0.4 % (0.0-0.4); Lymphocytes Absolute Auto 1.7 X10*3/uL (1.2-4.9); Mean Corpuscular HGB Conc 29.4 g/dl (31.0-35.0); Mean Corpuscular Hemoglobin 21.6 pg (27.0-33.0); Mean Corpuscular Volume 73.4 fL (80.0-98.0); Mean Platelet Volume 9.4 fL (9.4-12.3); Monocytes Absolute Auto 0.9 X10*3/uL (0.1-1.2); Neutrophils Absolute Auto 5.2 x10*3/uL (2.0-8.3); Neutrophils Percent Auto 62.1 % (45-73); Platelet Count 431 X10*3/uL (160-400); Red Cell Distribution Width 21.7 % (11.0-16.0); White Blood Count 8.4 X10*3/uL (4.8-10.8)
[2025-01-11 11:32] LABS: VBG Base Excess 2.5 mmol/L; VBG HCO3 27 mmol/L (22-26); VBG O2 % Saturation < 30.0 %; VBG pCO2 46 mmHg; VBG pH 7.38 (7.32-7.43); VBG pO2 27 mmHg
[2025-01-11 11:54] LABS: Anion Gap 12 (12-20); Blood Urea Nitrogen 16 mg/dL (9-16); Calcium 9.7 mg/dL (8.4-10.2); Carbon Dioxide 25 mmol/L (22-29); Chloride 105 mmol/L (96-108); Estimated Glomerular Filt Rate > 60; Glucose Random 109 mg/dL (60-115); Potassium 4.2 mmol/L (3.3-5.1); Sodium 138 mmol/L (135-145)
[2025-01-11 11:56] LABS: Troponin-I High Sensitivity 7.6 ng/L (<3.5-17.0)
[2025-01-11 12:10] LABS: Ferritin 41 ng/mL (10-250)
== END 2025-01-11 09:57 | disposition home or self-care (01) ==
LOC: HO.LAB 09:56
PROVIDERS: PCP Internal Medicine; Visit Provider Hospitalist
DX: J43.2 Centrilobular emphysema (principal); D64.9 Anemia, unspecified; R09.02 Hypoxemia
CPT/HCPCS: 36415; 80048; 82728; 82803; 84484; 85025; 86850; 86900; 86901; 94618; 99212

== ENCOUNTER 2025-04-08 13:48 | Outpatient (AMB) | payer MEDICARE, OTHER, SELFPAY ==
[2025-04-08 13:54] VITALS: BP 110/64; PULSE 80; O2SAT 99; BMI 29.3
--- NOTE | 2025-04-08 13:54 | MHC.OFFVIS ---
Vital Signs 04/08/25 13:54 Height 5 ft 3 in Weight 165 lb 5.547 oz BMI 29.3 BP 110/64 Blood Pressure Location Lt brachial Position Sitting Pulse 80 Pulse Source Pulse Oximeter Pulse Oximetry (%) 99 Oxygen Delivery Method Room Air Intake Visit Reasons: Dyspnea with Exertion Direct Customer Service Representative Required: No Accompanied by: Spouse Allergies naproxen (From Aleve) Adverse Reaction (Severe, Verified 04/08/25 14:01) urticaria Penicillins Adverse Reaction (Severe, Verified 04/08/25 14:01) urticaria HPI Comments Details: The patient is a 80 year woman with a known history of tobacco dependency quit more than 20 years ago who apparently was in usual state health until back in June which she underwent an elective back surgery. Postoperatively the patient was noted to be significantly hypoxic down to 70% and she did have a medical consultation. Apparently she has had episodes of hypoxia like this in the past after previous surgeries. During that hospitalization she did undergo a CTA that I personally reviewed with the patient. The patient did have moderate facet M a noted in addition to that did have significant ground-glass opacities and hazy opacities bilaterally but also more dense airspace disease suggesting pneumonia and a right lower lobe area. This is very suspicious for an aspiration event suggesting aspiration pneumonitis. In addition to that could have been iatrogenic from medications or anesthesia per the patient did recover she was discharged on oxygen although she was reluctant to use it so therefore she had a company pick it up. She still has shortness of breath with activity. She was placed on Spiriva she may have been taking it role wrong where she actually ran out of the medication in 2 weeks instead of in 4 weeks. The patient has not had any pulmonary function studies at this time. Her exam is significant only for coarse crackles at the bases. Not clear if this crackles are related to her postoperative. Or if she had the even previous to that. Since the patient is 2 months out of her surgery will be reasonable to try low-dose steroids in case she still has evidence of pneumonitis that is impacting her gas exchange. Therefore, will start her on low-dose prednisone at this time we did go for 6 minutes walk test the patient did desaturate down to about 86% have checked to his significant. The patient did recover quickly after stopping walking and she did improved to the low 90s mid 90s. Still the patient is reluctant to go back on oxygen. Explained to her the risk of not using oxygen in the patient understands the risks that she is taking. We will request an overnight oximetry however to address the question if she needs oxygen with sleep. She may consider using in this fashion unfortunately to the patient appears to have a foreign body that is related to the surgical intervention. The patient will be talking to her nurse surgeon to see what is the best approach to address this foreign body. The patient is concerned because her significant adverse effects to general anesthesia. 10/28/2023 the patient is here for pulmonary follow-up visit. The patient overall His a little better. She did complete the low-dose prednisone to treat the pneumonitis. She still complains of dyspnea on exertion. Mild in severity. She did undergo pulmonary function studies which we personally reviewed. There were little unclear but appears that she does have a mild obstruction and also a significant diffusion impairment. We also did go for brief walking oximetry. the patient desaturated down to 88%. However, she quickly improved. will at this point optimize respiratory therapy by placing her on Trelegy. The patient is also interested in participating in pulmonary rehabilitation. I do believe this will be very helpful In improvement in her respiratory capacity. Will plan to follow-up in 4-6 months. If patient has any new issues she will call for an earlier assessment. 05/01/2024 the patient is here for a pulmonary follow-up visit. Overall she is doing well. She denies any significant dyspnea on exertion. Denies any worsening cough. She did have a hard time with the Trelegy inhaler and also other inhaled cortical steroid inhalers. She was switched over to Stiolto. She seems to tolerate that better although she is not sure how to use it. She did bring it in and we did give her placebo in order for her to practice. She did do well after she was instructed how to use it and she felt more comfortable with it. Therefore she will continue. She is wondering if this is effective for. I do believe that is going to be partially effective in helping her airway obstruction although her major issue is a diffusion impairment due to her significant emphysema. The patient also has other issues including restrictive lung disease that minimizes her lung expansion in therefore Worsens also her gas exchange. The patient did undergo a 6 minute walk test again. The patient still desaturates down to 87% with activity. And then when she realized she was hypoxic she started panting and that also decrease her oxygen further to 84%. Once the patient has stopped and she rested quickly her oxygen improved to 92%. Therefore, the patient does qualify for oxygen although she still reluctant to use it. She is however willing to use it at nighttime. Will go ahead and request another overnight oximetry for her to do at home on room air. In the meantime she did not go to pulmonary rehabilitation because it was too far from home. I did give her the information about the online pulmonary rehabilitation can look into. We also reviewed her CT scan of the chest that she had a [facility] back in 07/06/2023. The patient did have some inflammatory changes but in addition to that she did have a 3 mm pulmonary nodule. Therefore, with a heart risk of cancer the patient does need to have repeat CT scan 07/06/2024. If the patient has any worsening symptoms we may have to get a CT scan sooner. Therefore, the patient will continue her current respiratory therapy and will start rehab and will look into following up after her CT scan. If she does need oxygen at nighttime based on her overnight oximetry will call to set up the oxygen. 07/12/2024 the patient is here for a pulmonary follow-up visit. Overall she is in good spirits. She is doing well. She is very limited from a physical standpoint as far as her capacity to walk and also go up a flight of stairs. She has severe back pain that also limits her significantly. Her oxygen today is reassuring. She did not requalify for oxygen at least when she came in. She did have a CT scan of the chest that we personally reviewed. She does have a new 4 mm pulmonary nodule. I did encourage her to have another CT scan in a year's time. Her other 3 mm nodule appears to be stable unchanged. She unfortunately has extensive emphysema and she is aware of that. At this point the patient is doing well. She will start taking some Mucinex for a productive cough that she has. If she is not better she can take a course of doxycycline to see if we can clear it up. Otherwise we can consider switching her inhalers but she is doing good on the Stiolto so would want to change that specially that she tried and failed multiple inhalers already. Will try to minimize the use of inhaled steroids and she has had reactions to that in the past. 01/11/2025 the patient is here for a pulmonary follow-up visit. She continues to have significant dyspnea on exertion. Moderate severity. Also has fatigue. She was recently diagnosed with anemia. She has been evaluated by primary care and will be seen by Hematology soon. She continues her respiratory medications but they do not seem to be helping her. Therefore she has not been using regularly. We did review her CT scan that she had back in the fall 2023 demonstrating extensive emphysema. Stable nodular densities. The patient did go for walking oximetry today. She is quickly desaturated to 86%. The patient was placed on 2 L pulse via a portable oxygen concentrator improving her pulse ox to 98% at rest and 94% with activity. The patient needs to start oxygen supplementation with activity at this time. She also would benefit from oxygen supplementation while sleeping. She did have an overnight oximetry also demonstrating significant hypoxia. Therefore she would also use the oxygen at nighttime. The patient also will have blood work. Her hemoglobin actually came back to be 8.2. She has blood work with her primary care doctor next week. For now she does have to go for blood transfusion but she needs to monitor closely her symptoms and her blood test. 04/08/2025 the patient is here for a pulmonary follow-up visit. Overall the patient is doing very well. Her oxygen have been excellent. Today she was saturating 99% at rest. We did go for brief walking oximetry and she did desat down to about 94% the patient continues use her respiratory therapy with good effect. Hemoglobin is also better which is also helping her symptoms. She has a hard time exercising because she has a bad back with significant discomfort. Difficult to her exercise. She does have modalities exercising while sitting which I do recommend she starts. The patient will return back in 6 months. In the meantime she is scheduled for CT scan sometime in June 2025 to follow-up with her pulmonary nodules. [facility] Medical History (Updated 04/08/25 @ 16:04 by Murphy Santos MD) Pulmonary nodules Emphysema, unspecified Anemia Spinal stenosis at L4-L5 level GERD (gastroesophageal reflux disease) Osteoporosis Osteoarthritis Migraine headache Hypercholesteremia Arthritis Hypertension Hypoxia Pneumonitis COPD (chronic obstructive pulmonary disease) Surgical History (Updated 10/27/23 @ 11:30 by Kesha Munoz MA) History of appendectomy History of repair of rotator cuff History of knee replacement, total Family History Father Cancer Mother Cancer Sister Cancer Social History Alcohol intake: current Comment: On occassion Patient Tobacco Use Status: Former Tobacco user Review of Systems Const Denies chills, Denies fatigue, Denies fever(s), Denies weight gain and Denies weight loss ENT Denies dizziness Card Denies chest pain, Denies leg edema, Denies lightheadedness, Denies palpitations, Denies dyspnea on exertion, Denies orthopnea and Denies other Resp Denies cough and Denies dyspnea on exertion GI Denies hematochezia and Denies change in stool character Musc Denies abnormal gait, Denies muscle weakness, Denies numbness, Denies radiating pain into limb and Denies tingling Neuro Denies abnormal gait, Denies dizziness, Denies numbness and Denies tingling Endo Denies fatigue and Denies palpitations Physical Exam Vital Signs: Last Vital Signs Pulse 80 04/08/25 13:54 BP 110/64 04/08/25 13:54 Pulse Ox 99 04/08/25 13:54 Oxygen Delivery Method Room Air 04/08/25 13:54 BMI result Body Mass Index 29.3 Const General: comfortable HEENT Head: Yes normocephalic Neck Neck: Yes supple Chest Chest palpation & inspection: normal inspection of the chest Resp Effort & Inspection: normal respiratory effort Auscultation: no rales, no rhonchi, no wheezes and diminished lung sounds Cardio Heart sounds: S1 normal heart sound present and S2 normal heart sound present GI Palpation (GI): Soft to palpation Skin General skin exam: no rashes or lesions noted Extrem General: Yes no clubbing, cyanosis or edema Assessment & Plan Assessment & Plan (1) COPD (chronic obstructive pulmonary disease): Code(s): J44.9 - Chronic obstructive pulmonary disease, unspecified Category: Medical Qualifiers: COPD type: emphysema Emphysema type: centrilobular Qualified Code(s): J43.2 - Centrilobular emphysema (2) Hypoxia: Code(s): R09.02 - Hypoxemia Category: Medical (3) Anemia: Code(s): D64.9 - Anemia, unspecified Category: Medical Qualifiers: Anemia type: iron deficiency Iron deficiency anemia type: unspecified iron deficiency Qualified Code(s): D50.9 - Iron deficiency anemia, unspecified (4) Pneumonitis: Code(s): J98.4 - Other disorders of lung Category: Medical (5) Pulmonary nodules: Code(s): R91.8 - Other nonspecific abnormal finding of lung field Category: Medical Plan stop Stiolto ASHLEE as needed CT chest 06/2025 to f/u pulmonary nodules, pt prefers [facility] oxygen supplementation, will reassess need during the next visit F/U 6 months Orders: Orders CT chest wo IV con 06/24/25 J98.4 - Other disorders of lung, R91.8 - Other nonspecific abnormal finding of lung field Coding Level of Care Code Est Pt Level 4 (16752) Complex EM visit Add On G2211 Diagnoses Centrilobular emphysema J43.2 COPD type: emphysema Emphysema type: centrilobular Hypoxia R09.02 Iron deficiency anemia, unspecified iron deficiency anemia type D50.9 Anemia type: iron deficiency Iron deficiency anemia type: unspecified iron deficiency Pneumonitis J98.4 Pulmonary nodules R91.8 Time Spent (min) 17
--- OUTSIDE RECORDS SUMMARY | 2025-04-08 15:16 | XMS_ITS | Clinical Summary ---
Author Organization [facility] Address [address] [place] [address] Care Team Providers Care Drip Molder Name Role Phone Unavailable Primary Care Provider Unavailabl e Social History Tobacco Use Types Packs/Day Years Used Date Smoking Tobacco: Never Assessed Comments Unknown Sex and Gender Information Value Date Recorded Sex Assigned at Not on file Legal Sex Female 2:47 PM EDT Gender Identity Not on file Sexual Orientation Not on file Plan of Treatment Health Maintenance Due Date Last Done Comments DTaP/Tdap/Td Vaccines (1 - Tdap) 01/27/1964 Pneumococcal Vaccines 50+ (1 of 1 - PCV) 01/27/1994 Zoster (Shingles) Vaccine (1 of 2) 01/27/1994 RSV Vaccine 60 years and old er and Patients (1 - 1-dose 75+ series) 01/27/2019 COVID-19 Vaccine ( - 2023-2 5 season) 2024 Hepatitis B Vaccines Aged Out No long er eligible based on patient's age to complete this topic
== END 2025-04-08 14:27 | disposition home or self-care (01) ==
LOC: HO.HPS 13:49
PROVIDERS: PCP Internal Medicine; Visit Provider Hospitalist
DX: J43.2 Centrilobular emphysema (principal); R09.02 Hypoxemia; D50.9 Iron deficiency anemia, unspecified; J98.4 Other disorders of lung; R91.8 Other nonspecific abnormal finding of lung field
CPT/HCPCS: 99214; G2211

== ENCOUNTER → 2025-04-08 13:48 | Outpatient (BNVA) | payer MEDICARE, OTHER, SELFPAY | PROVIDERS: PCP Internal Medicine; Visit Provider Hospitalist | DX: J43.2 Centrilobular emphysema (principal); J98.4 Other disorders of lung; R91.8 Other nonspecific abnormal finding of lung field; D50.9 Iron deficiency anemia, unspecified; R09.02 Hypoxemia | CPT/HCPCS: 99212 ==

== ENCOUNTER 2025-10-03 13:12 | Outpatient (AMB) | payer MEDICARE, OTHER, SELFPAY ==
--- OUTSIDE RECORDS SUMMARY | 2025-10-01 08:00 | XMS_ITS ---
Author Organization [facility] [employer] [facility] Address [address] [place] [address] [address] [place] [address] Care Team Providers Care Alteration Inspector Name Role Phone Jacksonsarah Elias Primary Care Provider Tremayne Saucedo Unavailable [phone] Allergies Allergen (clinical drug ingredient) Drug/Non Drug Allergy documented on EMR Reaction Allergy Type Onset Date Status bees (uncoded) anaphylaxis Allergy Act guille Aleve anaphylaxis Drug Allergy Activ e Penicillin anaphylaxis Drug Allergy Acti ve REASON FOR VISIT Lab result Discussion Medications Medication SIG (Take, Route, Frequency, Duration) Notes Start Date End Date Status valACYclovir HCl 1 GM 1 tablet Orally Once a day; Duration: 10 days As needed Active Losartan Potassium 25 MG 1 tablet Orally Once a day Active DULoxetine HCl 60 MG 1 capsule Orally On ce a day Active Omeprazole 40 MG 1 capsule 1/2 to 1 h our before morning meal Orally Once a day Active Gabapentin 300 MG 1 capsule Orally Onc e a day Active Multivitamin - 1 tablet Orally Once a day Active LORazepam 1 MG 1 tablet at bedtime as needed Orally Once a day Active Lidocaine 5 % 1 patch remove after 12 hours Externally Once a day Active Fluticasone Propionate 50 MCG/ACT 1 spray in each nostril Nasally Twice a day Active Aspirin Childrens 81 MG 1 tablet Orally Once a day Active Vitamin D 25 MCG (1000 UT) 1 tablet Oral ly Once a day Active Vital Signs Temperature 97.3 degrees Fahrenheit 10/01/20 25 Oximetry 96 % 10/01/2025 Heart Rate 104 /min 10/01/2025 Blood pressure systolic 150 mm Hg 10/01/20 25 Blood pressure diastolic 80 mm Hg 025 Weight 166.3 lbs 10/01/2025 BMI 29.46 kg/m2 10/01/2025 Height 5'3'' in 10/01/2025 Encounters Encounter Location Date Provider Diagnosis [facility] [address] [facility] [address] [place] [address] 10/01/2025 Tremayne Saucedo Essential (primary) hypertension I10 ; Hyperlipidemia, mixed E78.2 ; Iron deficiency anemia secondary to inadequate dietary iron intake D50.8 ; Spinal stenosis, lumbosacral region M48.07 ; Chronic obstructive pulmonary disease, unspecified J44.9 ; Major depressive disorder, recurrent, in full remission F33.42 and Generalized anxiety disorder F41.1 Assessments Encounter Date Diagnosis (ICD Code) Assessment Notes Treatment Notes Treatment Clinical Notes Section Notes 10/01/2025 Essential (primary) hypertension (ICD-10 - I10) 80-year-old lady with history of hypertension hyperlipidemia not able to tolerate any statin therapy, chronic back pain failed spinal stenosis surgery, GERD is here today to establish a new PCP. Plan as following. Hypertension well controlled, blood pressure today is 120/80, she takes losartan 25 mg daily. We will check a basic metabolic panel albumin creatinine ratio. Hyperlipidemia, she is not able to tolerate any statins due to myalgias, she also has tried rapatha the past and was not able to tolerate that either. Mostly diet controlled. Will check a lipid profile. Chronic back painSpinal stenosis surgery, she used to take Tylenol and lidocaine patches. Anxiety and depression are currently stable she does not see a therapist takes duloxetine 60 mg daily and also Lorazepam 1 mg as needed. GERD on a PPI Lab slip has been given today 10/01/2025 Hyperlipidemia, mixed (ICD-10 - E78.2) 80-year-old lady with history of hypertension hyperlipidemia not able to tolerate any statin therapy, chronic back pain failed spinal stenosis surgery, GERD is here today to establish a new PCP. Plan as following. Hypertension well controlled, blood pressure today is 120/80, she takes losartan 25 mg daily. We will check a basic metabolic panel albumin creatinine ratio. Hyperlipidemia, she is not able to tolerate any statins due to myalgias, she also has tried rapatha the past and was not able to tolerate that either. Mostly diet controlled. Will check a lipid profile. Chronic back painSpinal stenosis surgery, she used to take Tylenol and lidocaine patches. Anxiety and depression are currently stable she does not see a therapist takes duloxetine 60 mg daily and also Lorazepam 1 mg as needed. GERD on a PPI Lab slip has been given today 10/01/2025 Iron deficiency anemia secondary to inadequate dietary iron intake (ICD-10 - D50.8) 80-year-old lady with history of hypertension hyperlipidemia not able to tolerate any statin therapy, chronic back pain failed spinal stenosis surgery, GERD is here today to establish a new PCP. Plan as following. Hypertension well controlled, blood pressure today is 120/80, she takes losartan 25 mg daily. We will check a basic metabolic panel albumin creatinine ratio. Hyperlipidemia, she is not able to tolerate any statins due to myalgias, she also has tried rapatha the past and was not able to tolerate that either. Mostly diet controlled. Will check a lipid profile. Chronic back painSpinal stenosis surgery, she used to take Tylenol and lidocaine patches. Anxiety and depression are currently stable she does not see a therapist takes duloxetine 60 mg daily and also Lorazepam 1 mg as needed. GERD on a PPI Lab slip has been given today 10/01/2025 Spinal stenosis, lumbosacral region (ICD-10 - M48.07) 80-year-old lady with history of hypertension hyperlipidemia not able to tolerate any statin therapy, chronic back pain failed spinal stenosis surgery, GERD is here today to establish a new PCP. Plan as following. Hypertension well controlled, blood pressure today is 120/80, she takes losartan 25 mg daily. We will check a basic metabolic panel albumin creatinine ratio. Hyperlipidemia, she is not able to tolerate any statins due to myalgias, she also has tried rapatha the past and was not able to tolerate that either. Mostly diet controlled. Will check a lipid profile. Chronic back painSpinal stenosis surgery, she used to take Tylenol and lidocaine patches. Anxiety and depression are currently stable she does not see a therapist takes duloxetine 60 mg daily and also Lorazepam 1 mg as needed. GERD on a PPI Lab slip has been given today 10/01/2025 Chronic obstructive pulmonary disease, unspecified (ICD-10 - J44.9) 80-year-old lady with history of hypertension hyperlipidemia not able to tolerate any statin therapy, chronic back pain failed spinal stenosis surgery, GERD is here today to establish a new PCP. Plan as following. Hypertension well controlled, blood pressure today is 120/80, she takes losartan 25 mg daily. We will check a basic metabolic panel albumin creatinine ratio. Hyperlipidemia, she is not able to tolerate any statins due to myalgias, she also has tried rapatha the past and was not able to tolerate that either. Mostly diet controlled. Will check a lipid profile. Chronic back painSpinal stenosis surgery, she used to take Tylenol and lidocaine patches. Anxiety and depression are currently stable she does not see a therapist takes duloxetine 60 mg daily and also Lorazepam 1 mg as needed. GERD on a PPI Lab slip has been given today 10/01/2025 Major depressive disorder, recurrent, in full remission (ICD-10 - F33.42) 80-year-old lady with history of hypertension hyperlipidemia not able to tolerate any statin therapy, chronic back pain failed spinal stenosis surgery, GERD is here today to establish a new PCP. Plan as following. Hypertension well controlled, blood pressure today is 120/80, she takes losartan 25 mg daily. We will check a basic metabolic panel albumin creatinine ratio. Hyperlipidemia, she is not able to tolerate any statins due to myalgias, she also has tried rapatha the past and was not able to tolerate that either. Mostly diet controlled. Will check a lipid profile. Chronic back painSpinal stenosis surgery, she used to take Tylenol and lidocaine patches. Anxiety and depression are currently stable she does not see a therapist takes duloxetine 60 mg daily and also Lorazepam 1 mg as needed. GERD on a PPI Lab slip has been given today 10/01/2025 Generalized anxiety disorder (ICD-10 - F41.1) 80-year-old lady with history of hypertension hyperlipidemia not able to tolerate any statin therapy, chronic back pain failed spinal stenosis surgery, GERD is here today to establish a new PCP. Plan as following. Hypertension well controlled, blood pressure today is 120/80, she takes losartan 25 mg daily. We will check a basic metabolic panel albumin creatinine ratio. Hyperlipidemia, she is not able to tolerate any statins due to myalgias, she also has tried rapatha the past and was not able to tolerate that either. Mostly diet controlled. Will check a lipid profile. Chronic back painSpinal stenosis surgery, she used to take Tylenol and lidocaine patches. Anxiety and depression are currently stable she does not see a therapist takes duloxetine 60 mg daily and also Lorazepam 1 mg as needed. GERD on a PPI Lab slip has been given today Plan Of Treatment Future Test Test Name Order Date Iron and TIBC 11/12/2025 CBC With Differential/Platelet-[id number] Ferritin, (Serial)-[id number] 11/12/2025 Next Appt Details Follow Up: next appt, Reason : Provider Name:Elias Garcia, 0 10/31/2025 02:30:00 PM, [address] [place] [address] [address], [place], [address], Progress Notes * Arabella QUINONESDOB:1944 (80 yo F)Acc No.[id number]:10/01/2025 Progress Notes Patient: Arabella BIANCHI Appointment Provider: Megan Saucedo :1945 A ge:80 Y S ex:Female Date:10/01/2025 Address:[address] [place] [address], [address] Pcp:Elias Garcia Subjective: * Chief Complaints: * 1 . Lab result Discussion. * HPI: i nternal medicine: 80-year-old lady with history of hypertension, COPD hyperlipidemia not able to tolerate statins due to severe myalgias,GERD chronic back pain failed spinal stenosis surgery by Dr. keller , chronic lower extremity cramps,RAJAN s here today for follow-up on bloodwork. She reports fatigue and lower extremity cramps. Recent CBC is concerning for RAJAN. She reports longstanding history of RAJAN, per patient she had comprehensive workup including barium enema to r/o GI bleed vs malignancy with negative pathology. She just resumed back on iron supplement after recieving her results. She does not consume enough iron enriched food. It is also noted that her cholesterol is signifcantly elevated. She does follow with director of procurement and reports a discussion on management. She has been on multiple cholesterol medications with intolerance. Per patient, her Pain Management Specialist will refer her out to another. * ROS: G eneral/Constitutional: Overall health G ood. C hange in appetite d enies.?Chills d enies. F ever d enies. N ight sweats d enies. S leep disturbance d enies. W eight gain d enies. W eight loss d enies. N eurologic: Patient denies b alance difficulty, difficulty speaking, dizziness. D ifficulty speaking d enies. D izziness d enies. G ait abnormality?denies. H eadache d enies. L oss of strength d enies. M ward loss d enies. S eizures d enies. T ingling/Numbness d enies . O phthalmologic: Blurred vision d enies. D ischarge d enies. D ry eye d enies. R ed eye d enies. E NT: Change in Voice D enies. C old Symptoms D enies.?Cough D enies. D izziness D enies. N tate Congestion D enies. O talgia?Denies. p ostnasal drip D enies. B locked ear d enies. N osebleed d enies. S noring d enies. C ardiovascular: Diaphoresis D enies. P edal Edema D enies. P ND (Paroxsymal nocturnal dyspnea) D enies. C hest pain d enies. D ifficulty laying flat d enies. D yspnea on exertion d enies. H eart murmur d enies. O rthopnea?denies. R espiratory: Asthma d enies. C ough d enies. S hortness of breath with exertion d enies. S putum production d enies. W heezing d enies. G astrointestinal: Change in bowel habits d enies. C onstipation d enies. D ecreased appetite d enies. D iarrhea d enies. H eartburn d enies. N ausea d enies. V omiting d enies. M usculoskeletal: tingling/numbness D enies. m yalgias D enies. J oint Swelling D enies. e xtremeties n ormal. P atient complaining of l ower back pain, bilateral extremity cramps. A rthritis d enies. B ack problems d enies. C arpal tunnel d enies. J oint stiffness d enies. M uscle aches d enies. ? E ndocrine: Bowel Changes D enies. B reast Discharge D enies.?poor libido D enies. C old intolerance d enies. E xcessive sweating d enies.?Excessive thirst d enies. F requent urination d enies. T hyroid problems d enies. S kin: Bruising D enies. E czema d enies. H air changes d enies. R christy d enies. S kin lesion(s) d enies. P sychiatric: Anxiety d enies. D epressed mood d enies. D ifficulty sleeping d enies. N ervous breakdown d enies. S ubstance abuse d enies.? U rology: abnormal menstrual bleeding d enies. b lood in urine?denies. b urning on urination d enies. d ifficulty urinating d enies. d ischarge d enies. d ysuria d enies. * Medical History: H ypertension, Hyperlipidemia, Chronic back pain, GERD, Anxiety disorder, Depression, COPD. * Surgical History: f eri spinal surgery dr keller , Bilateral knee replacement , Appendectomy , Bilateral cataract surgery . * Family History: No history of diabetes or hypertension mother had history of lung cancer. * Social History: s he is single and , she has 3 kids, she used to smoke when she was younger quit more than 30 years ago, currently she does not smoke or drinkshe cannot exercise due to back pain she is retired from the [employer] office. * Medications: T aking Vitamin D 25 MCG (1000 UT) Tablet 1 tablet Orally Once a day , Taking Multivitamin - Tablet 1 tablet Orally Once a day , Taking Aspirin Childrens 81 MG Tablet Chewable 1 tablet Orally Once a day , Taking Fluticasone Propionate 50 MCG/ACT Suspension 1 spray in each nostril Nasally Twice a day , Taking Lidocaine 5 % Patch 1 patch remove after 12 hours Externally Once a day , Taking LORazepam 1 MG Tablet 1 tablet at bedtime as needed Orally Once a day , Taking Gabapentin 300 MG Capsule 1 capsule Orally Once a day , Taking Omeprazole 40 MG Capsule Delayed Release 1 capsule 1/2 to 1 hour before morning meal Orally Once a day , Taking DULoxetine HCl 60 MG Capsule Delayed Release Particles 1 capsule Orally Once a day , Taking Losartan Potassium 25 MG Tablet 1 tablet Orally Once a day , Taking valACYclovir HCl 1 GM Tablet 1 tablet Orally Once a day As needed * Allergies: P enicillin: anaphylaxis, bees: anaphylaxis, Aleve: anaphylaxis. Objective: * Vitals: T emp: 97.3 F, Oxygen sat %: 96 %, HR: 104 /min, BP: 140/80 mm Hg, 150/80 mm Hg, Wt: 166.3 lbs, BMI: 29.46 Index, Ht: 5'3''. * P ast Orders: L ab:Albumin/Creatinine Ratio,Urine-[id number] (Order Date - 09/19/2025) (Collection Date & Time - 09/24/2025 09:38 AM) Value Reference Range Creatinine, Urine 158.6 Not Estab. - mg/dL Albumin, Urine 22.0 Not Estab. - ug/mL Alb/Creat Ratio 14 0-29 - mg/g creat L ab:CBC with Diff, Platelet, [id number] (Order Date - 09/19/2025) (Collection Date & Time - 09/24/2025 09:38 AM) Value Reference Range WBC 9.9 3.4-10.8 - x10E3/uL RBC 4.26 3.77-5.28 - x10E6/uL Hemoglobin 10.7 L 11.1-15.9 - g/dL Hematocrit 35.1 34.0-46.6 - % MCV 82 79-97 - fL MCH 25.1 L 26.6-33.0 - pg MCHC 30.5 L 31.5-35.7 - g/dL RDW 13.0 11.7-15.4 - % Platelets 520 H 150-450 - x10E3/uL Neutrophils 65 Not Estab. - % Lymphs 19 Not Estab. - % Monocytes 13 Not Estab. - % Eos 2 Not Estab. - % Basos 1 Not Estab. - % Neutrophils (Absolute) 6.5 1.4-7.0 - x10E3/u L Lymphs (Absolute) 1.9 0.7-3.1 - x10E3/uL Neut/Lymph Ratio 3.4 H 0.0-2.9 - ratio Monocytes(Absolute) 1.3 H 0.1-0.9 - x10E3/uL Eos (Absolute) 0.2 0.0-0.4 - x10E3/uL Baso (Absolute) 0.1 0.0-0.2 - x10E3/uL Immature Granulocytes 0 Not Estab. - % Immature Grans (Abs) 0.0 0.0-0.1 - x10E3/uL L ab:Iron and [id number] (Order Date - 09/19/2025) (Collection Date & Time - 09/24/2025 09:38 AM) Value Reference Range Iron Bind.Cap.(TIBC) 459 H 250-450 - ug/dL UIBC 437 H 118-369 - ug/dL Iron 22 L 27-139 - ug/dL Iron Saturation 5 LL 15-55 - % L ab:Lipid Panel With LDL/HDL Ratio-[id number] (Order Date - 09/19/2025) (Collection Date & Time - 09/24/2025 09:38 AM) Value Reference Range Cholesterol, Total 273 H 100-199 - mg/dL Triglycerides 84 0-149 - mg/dL HDL Cholesterol 60 >39 - mg/dL VLDL Cholesterol Jarred 14 5-40 - mg/dL LDL Chol Calc (NIH) 199 H 0-99 - mg/dL LDL/HDL Ratio 3.3 H 0.0-3.2 - ratio L ab:Comp. Metabolic Panel [id number] (Order Date - 09/19/2025) (Collection Date & Time - 09/24/2025 09:38 AM) Value Reference Range Glucose 99 70-99 - mg/dL BUN 21 8-27 - mg/dL Creatinine 0.95 0.57-1.00 - mg/dL BUN/Creatinine Ratio 22 12-28 - Sodium 140 134-144 - mmol/L Potassium 4.9 3.5-5.2 - mmol/L Chloride 102 96-106 - mmol/L Carbon Dioxide, Total 33 H 20-29 - mmol/L Calcium 10.3 8.7-10.3 - mg/dL Protein, Total 6.9 6.0-8.5 - g/dL Albumin 4.4 3.7-4.7 - g/dL Globulin, Total 2.5 1.5-4.5 - g/dL Bilirubin, Total 0.4 0.0-1.2 - mg/dL Alkaline Phosphatase 96 48-129 - IU/L AST (SGOT) 21 0-40 - IU/L eGFR 60 >59 - mL/min/1.73 * Examination: G eneral Examination: GENERAL APPEARANCE: W ell developed, well nourished, in no acute distress. MUSCULOSKELETAL: N ormal. HEAD: N ormocephalic, atraumatic. EYES: P upils equal, round, reactive to light and accommodation, sclera non-icteric. EARS: a uditory canal clear tympanic membrane intact, clear light reflex present . ORAL CAVITY: N ormal. THROAT: C lear. OROPHARYNX N ormal. SINUSES N ormal. NECK/THYROID: N paradise supple, full range of motion, no cervical lymphadenopathy. SKIN: g ood turgor no suspicious lesions warm and dry normal hair distribution . HEART: S 1, S2 normal regular rate and rhythm no murmurs, rubs, gallops . LUNGS: c lear anteriorly and posteriorly good air movement no wheezes, rales, rhonchi . BREASTS: _ _. ABDOMEN: S oft, nontender, nondistended, bowel sounds present, . EXTREMITIES: N ormal. PERIPHERAL PULSES: N ormal. NEUROLOGIC: N onfocal, appropriate m otor strength normal upper and lower extremities, sensory exam intact. Psychiatry N ormal. FEMALE GENITOURINARY: _ _. MALE GENITOURINARY: _ _. PODIATRIC: N ormal. 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 Assessment: * Assessment: 1. E ssential (primary) hypertension - I10 (Primary) 2 . H yperlipidemia, mixed - E78.2 3 . I quentin deficiency anemia secondary to inadequate dietary iron intake - D50.8 4 . S adrienne stenosis, lumbosacral region - M48.07 5 . C hronic obstructive pulmonary disease, unspecified - J44.9 6 . M ajor depressive disorder, recurrent, in full remission - F33.42 7 . G eneralized anxiety disorder - F41.1 80-year-old lady with histor y of hypertension hyperlipidemia not able to tolerate any statin therapy, chronic back pain failed spinal stenosis surgery, GERD is here today to establish a new PCP. Plan as following. Hypertension well controlled, blood pressure today is 120/80, she takes losartan 25 mg daily. We will check a basic metabolic panel albumin creatinine ratio. Hyperlipidemia, she is not able to tolerate any statins due to myalgias, she also has tried rapatha the past and was not able to tolerate that either. Mostly diet controlled.? Will check a lipid profile. Chronic back painSpinal stenosis surgery, she used to take Tylenol and lidocaine patches. Anxiety and depression are currently stable she does not see a therapist takes duloxetine 60 mg daily and also Lorazepam 1 mg as needed. GERD on a PPI Lab slip has been given today Plan: * Treatment: * Follow Up: n ext appt * Images: * Electronic signature of Em Saucedo PA-C on 10/03/2025 at 05:18 PM EST Sign off status: Pending * Appointment Provider: Megan Saucedo Date: 12/02/2024 Generated for Morris trujillo/Dereje/Nav on: 12/04/2024 05:18 PM EST History and Physical Notes * HPI (History of Present Illness) Category Sub-Category Detail Notes Category Not es internal medicine 80-year-old lady with history of hypertension, COPD hyperlipidemia not able to tolerate statins due to severe myalgias,GERD chronic back pain failed spinal stenosis surgery by Dr. keller , chronic lower extremity cramps,RAJAN s here today for follow-up on bloodwork. She reports fatigue and lower extremity cramps. Recent CBC is concerning for RAJAN. She reports longstanding history of RAJAN, per patient she had comprehensive workup including barium enema to r/o GI bleed vs malignancy with negative pathology. She just resumed back on iron supplement after recieving her results. She does not consume enough iron enriched food. It is also noted that her cholesterol is signifcantly elevated. She does follow with director of procurement and reports a discussion on management. She has been on multiple cholesterol medications with intolerance. Per patient, her Pain Management Specialist will refer her out to another Examination Category Sub-Category Detail Notes Category Not es General Examination GENERAL APPEARANCE: Well dev eloped, well nourished, in no acute distress HEAD: Normocephalic, atrau matic EYES: Pupils equal, round, reactive to light and accommodation, sclera non-icteric EARS: auditory canal clear tympanic membrane intact, clear light reflex present THROAT: Clear NECK/THYROID: Neck supple, full ra nge of motion, no cervical lymphadenopathy HEART: S1, S2 normal regula r rate and rhythm no murmurs, rubs, gallops LUNGS: clear anteriorly and posteriorly good air movement no wheezes, rales, rhonchi ABDOMEN: Soft, nontender, non distended, bowel sounds present, NEUROLOGIC: Nonfocal, appropriat e motor strength normal upper and lower extremities, sensory exam intact SKIN: good turgor no suspi cious lesions warm and dry normal hair distribution EXTREMITIES: Normal PERIPHERAL PULSES: Normal BREASTS: __ MUSCULOSKELETAL: Normal MALE GENITOURINARY: __ FEMALE GENITOURINARY: __ ORAL CAVITY: Normal PODIATRIC: Normal Psychiatry Normal OROPHARYNX Normal SINUSES Normal 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
[2025-10-03 13:33] VITALS: BP 136/60; PULSE 90; O2SAT 100; BMI 30.1
--- NOTE | 2025-10-03 13:33 | A.OFFVIS_ITS ---
Vital Signs 10/03/25 13:33 Height 5 ft 3 in Weight 169 lb 12.095 oz BMI 30.1 BP 136/60 Blood Pressure Location Lt brachial Position Sitting Pulse 90 Pulse Source Pulse Oximeter Pulse Oximetry (%) 100 Oxygen Delivery Method Room Air Intake Visit Reasons: Dyspnea with Exertion Implementation Engineer Required: No Pool Servicer: Pool Servicer offered & declined Accompanied by: Spouse Allergies naproxen (From Aleve) Adverse Reaction (Severe, Verified 10/03/25 13:36) urticaria Penicillins Adverse Reaction (Severe, Verified 10/03/25 13:36) urticaria HPI Comments Details: The patient is a 80 year woman with a known history of tobacco dependency quit more than 20 years ago who apparently was in usual state health until back in June which she underwent an elective back surgery. Postoperatively the patient was noted to be significantly hypoxic down to 70% and she did have a medical consultation. Apparently she has had episodes of hypoxia like this in the past after previous surgeries. During that hospitalization she did undergo a CTA that I personally reviewed with the patient. The patient did have moderate facet M a noted in addition to that did have significant ground-glass opacities and hazy opacities bilaterally but also more dense airspace disease suggesting pneumonia and a right lower lobe area. This is very suspicious for an aspiration event suggesting aspiration pneumonitis. In addition to that could have been iatrogenic from medications or anesthesia per the patient did recover she was discharged on oxygen although she was reluctant to use it so therefore she had a company pick it up. She still has shortness of breath with activity. She was placed on Spiriva she may have been taking it role wrong where she actually ran out of the medication in 2 weeks instead of in 4 weeks. The patient has not had any pulmonary function studies at this time. Her exam is significant only for coarse crackles at the bases. Not clear if this crackles are related to her postoperative. Or if she had the even previous to that. Since the patient is 2 months out of her surgery will be reasonable to try low-dose steroids in case she still has evidence of pneumonitis that is impacting her gas exchange. Therefore, will start her on low-dose prednisone at this time we did go for 6 minutes walk test the patient did desaturate down to about 86% have checked to his significant. The patient did recover quickly after stopping walking and she did improved to the low 90s mid 90s. Still the patient is reluctant to go back on oxygen. Explained to her the risk of not using oxygen in the patient understands the risks that she is taking. We will request an overnight oximetry however to address the question if she needs oxygen with sleep. She may consider using in this fashion unfortunately to the patient appears to have a foreign body that is related to the surgical intervention. The patient will be talking to her nurse surgeon to see what is the best approach to address this foreign body. The patient is concerned because her significant adverse effects to general anesthesia. 10/28/2023 the patient is here for pulmonary follow-up visit. The patient overall His a little better. She did complete the low-dose prednisone to treat the pneumonitis. She still complains of dyspnea on exertion. Mild in severity. She did undergo pulmonary function studies which we personally reviewed. There were little unclear but appears that she does have a mild obstruction and also a significant diffusion impairment. We also did go for brief walking oximetry. the patient desaturated down to 88%. However, she quickly improved. will at this point optimize respiratory therapy by placing her on Trelegy. The patient is also interested in participating in pulmonary rehabilitation. I do believe this will be very helpful In improvement in her respiratory capacity. Will plan to follow-up in 4-6 months. If patient has any new issues she will call for an earlier assessment. 05/01/2024 the patient is here for a pulmonary follow-up visit. Overall she is doing well. She denies any significant dyspnea on exertion. Denies any worsening cough. She did have a hard time with the Trelegy inhaler and also other inhaled cortical steroid inhalers. She was switched over to Stiolto. She seems to tolerate that better although she is not sure how to use it. She did bring it in and we did give her placebo in order for her to practice. She did do well after she was instructed how to use it and she felt more comfortable with it. Therefore she will continue. She is wondering if this is effective for. I do believe that is going to be partially effective in helping her airway obstruction although her major issue is a diffusion impairment due to her significant emphysema. The patient also has other issues including restrictive lung disease that minimizes her lung expansion in therefore Worsens also her gas exchange. The patient did undergo a 6 minute walk test again. The patient still desaturates down to 87% with activity. And then when she realized she was hypoxic she started panting and that also decrease her oxygen further to 84%. Once the patient has stopped and she rested quickly her oxygen improved to 92%. Therefore, the patient does qualify for oxygen although she still reluctant to use it. She is however willing to use it at nighttime. Will go ahead and request another overnight oximetry for her to do at home on room air. In the meantime she did not go to pulmonary rehabilitation because it was too far from home. I did give her the information about the online pulmonary rehabilitation can look into. We also reviewed her CT scan of the chest that she had a [facility] back in 07/06/2023. The patient did have some inflammatory changes but in addition to that she did have a 3 mm pulmonary nodule. Therefore, with a heart risk of cancer the patient does need to have repeat CT scan 07/06/2024. If the patient has any worsening symptoms we may have to get a CT scan sooner. Therefore, the patient will continue her current respiratory therapy and will start rehab and will look into following up after her CT scan. If she does need oxygen at nighttime based on her overnight oximetry will call to set up the oxygen. 07/12/2024 the patient is here for a pulmonary follow-up visit. Overall she is in good spirits. She is doing well. She is very limited from a physical standpoint as far as her capacity to walk and also go up a flight of stairs. She has severe back pain that also limits her significantly. Her oxygen today is reassuring. She did not requalify for oxygen at least when she came in. She did have a CT scan of the chest that we personally reviewed. She does have a new 4 mm pulmonary nodule. I did encourage her to have another CT scan in a ye ar's time. Her other 3 mm nodule appears to be stable unchanged. She unfortunately has extensive emphysema and she is aware of that. At this point the patient is doing well. She will start taking some Mucinex for a productive cough that she has. If she is not better she can take a course of doxycycline to see if we can clear it up. Otherwise we can consider switching her inhalers but she is doing good on the Stiolto so would want to change that specially that she tried and failed multiple inhalers already. Will try to minimize the use of inhaled steroids and she has had reactions to that in the past. 01/11/2025 the patient is here for a pulmonary follow-up visit. She continues to have significant dyspnea on exertion. Moderate severity. Also has fatigue. She was recently diagnosed with anemia. She has been evaluated by primary care and will be seen by Hematology soon. She continues her respiratory medications but they do not seem to be helping her. Therefore she has not been using regularly. We did review her CT scan that she had back in the fall 2023 demonstrating extensive emphysema. Stable nodular densities. The patient did go for walking oximetry today. She is quickly desaturated to 86%. The patient was placed on 2 L pulse via a portable oxygen concentrator improving her pulse ox to 98% at rest and 94% with activity. The patient needs to start oxygen supp lementation with activity at this time. She also would benefit from oxygen supplementation while sleeping. She did have an overnight oximetry also demonstrating significant hypoxia. Therefore she would also use the oxygen at nighttime. The patient also will have blood work. Her hemoglobin actually came back to be 8.2. She has blood work with her primary care doctor next week. For now she does have to go for blood transfusion but she needs to monitor closely her symptoms and her blood test. 04/08/2025 the patient is here for a pulmonary follow-up visit. Overall the patient is doing very well. Her oxygen have been excellent. Today she was saturating 99% at rest. We did go for brief walking oximetry and she did desat down to about 94% the patient continues use her respiratory therapy with good effect. Hemoglobin is also better which is also helping her symptoms. She has a hard time exercising because she has a bad back with significant discomfort. Difficult to her exercise. She does have modalities exercising while sitting which I do recommend she starts. The patient will return back in 6 months. In the meantime she is scheduled for CT scan sometime in June 2025 to follow- up with her pulmonary nodules. 10/03/2025 the patient is here for pulmonary follow-up visit. Overall she is doing okay from a respiratory status. Her major complaint is some significant spasms. She has a hard time sleeping because of the spasms in his hard for her to function have quality of life because of the spasms. She tried multiple medical therapies without any relief. The patient also had a CT scan of the chest which we personally reviewed. It was in June 2020 the 5. I personally reviewed with her. It appears that she has stable pulmonary nodules largest 1 measuring 5 mm in size. They appeared to be stable when compared to 2023. will plan to repeat another CAT scan in June of 2026 to make sure that the nodules are stable for at least a couple years. Then after that we do not have to follow-up with regular CAT scans unless the nodules have changed or if any evidence of any subsolid components. The patient though has significant calcifications of the coronary arteries. Explained to them that is evidence of atherosclerosis. She is concerned because of her elevated LDL of closer to 200. the patient does follow-up with Cardiology. the patient will be discussing with her primary care doctor and director of sports medicine regarding any potential therapy she can start for her significant hypercholesterolemia. Unfortunately she has had a lot of side effects. Will go ahead and try her on baclofen. otherwise she will follow-up with Pulmonary in the fall after her CT scan of the chest. [facility] Medical History (Updated 04/08/25 @ 16:04 by Murphy Santos MD) Pulmonary nodules Emphysema, unspecified Anemia Spinal stenosis at L4-L5 level GERD (gastroesophageal reflux disease) Osteoporosis Osteoarthritis Migraine headache Hypercholesteremia Arthritis Hypertension Hypoxia Pneumonitis COPD (chronic obstructive pulmonary disease) Surgical History (Updated 10/27/23 @ 11:30 by Kesha Munoz MA) History of appendectomy History of repair of rotator cuff History of knee replacement, total Family History Father Cancer Mother Cancer Sister Cancer Social History Alcohol intake: current Comment: On occassion Patient Tobacco Use Status: Former Tobacco user Review of Systems Const Denies chills, Denies fatigue, Denies fever(s), Denies weight gain and Denies weight loss ENT Denies dizziness Card Denies chest pain, Denies leg edema, Denies lightheadedness, Denies palpit ations, Denies dyspnea on exertion, Denies orthopnea and Denies other Resp Denies cough and Denies dyspnea on exertion GI Denies hematochezia and Denies change in stool character Musc Reports as per HPI, Denies abnormal gait, Reports muscle cramps, Denies muscle weakness, Denies numbness, Denies radiating pain into limb, Reports stiffness and Denies tingling Neuro Denies abnormal gait, Denies dizziness, Denies numbness and Denies tingling Endo Denies fatigue and Denies palpitations Physical Exam Vital Signs: Last Vital Signs Pulse 90 10/03/25 13:33 BP 136/60 10/03/25 13:33 Pulse Ox 100 10/03/25 13:33 Oxygen Delivery Method Room Air 10/03/25 13:33 BMI result Body Mass Index 30.1 Const General: comfortable HEENT Head: Yes normocephalic Neck Neck: Yes supple Chest Chest palpation & inspection: normal inspection of the chest Resp Effort & Inspection: normal respiratory effort Auscultation: no rales, no rhonchi, no wheezes and diminished lung sounds Cardio Heart sounds: S1 normal heart sound present and S2 normal heart sound present GI Palpation (GI): Soft to palpation Skin General skin exam: no rashes or lesions noted Extrem General: Yes no clubbing, cyanosis or edema Assessment & Plan Assessment & Plan (1) COPD (chronic obstructive pulmonary disease): Code(s): J44.9 - Chronic obstructive pulmonary disease, unspecified Category: Medical Qualifiers: COPD type: emphysema Emphysema type: centrilobular Qualified Code(s): J43.2 - Centrilobular emphysema (2) Hypoxia: Code(s): R09.02 - Hypoxemia Category: Medical (3) Anemia: Code(s): D64.9 - Anemia, unspecified Category: Medical Qualifiers: Anemia type: iron deficiency Iron deficiency anemia type: unspecified iron deficiency Qualified Code(s): D50.9 - Iron deficiency anemia, unspecified (4) Pneumonitis: Code(s): J98.4 - Other disorders of lung Category: Medical (5) Pulmonary nodules: Code(s): R91.8 - Other nonspecific abnormal finding of lung field Category: Medical Plan stop Stiolto ASHLEE as needed CT chest 06/2026 to f/u pulmonary nodules, pt prefers [facility] No need for oxygen at this time trial of baclofen F/U 12 months Orders: Orders CT chest wo IV con 07/17/26 R91.8 - Other nonspecific abnormal finding of lung field Medications: New baclofen 10 mg PO BID 60 tabs 3RF 30 days Coding Level of Care Code Est Pt Level 4 (55130) Diagnoses Centrilobular emphysema J43.2 COPD type: emphysema Emphysema type: centrilobular Hypoxia R09.02 Iron deficiency anemia, unspecified iron deficiency anemia type D50.9 Anemia type: iron deficiency Iron deficiency anemia type: unspecified iron deficiency Pneumonitis J98.4 Pulmonary nodules R91.8 Time Spent (min) 16
--- OUTSIDE RECORDS SUMMARY | 2025-10-03 17:18 | XMS_ITS | Continuity of Care Document ---
Author Organization [facility] [address] [place] [address] Phone [phone] Social History Type Date Description Comments Sex Female Sex Unknown Medical Devices Description No Information Available Encounters Description No Information Available Assessments Description No Information Available Plan of Treatment No Information Available Functional Status Description No Information Available Mental Status Description No Information Available Referrals Description No Information Available
--- OUTSIDE RECORDS SUMMARY | 2025-10-03 17:18 | XMS_ITS | Clinical Summary ---
Author Organization [facility] Address [address] [place] [address] Phone Care Team Providers Care Sports Book Board Attendant Name Role Phone Sami Villavicencio MD Primary Care Provider + [phone] Allergies Active Allergy Reactions Criticality Noted Date Comments Naproxen Sodium Hives 01/04/2025 Codeine 01/04/2025 Penicillins 01/04/2025 Social History Tobacco Use Types Packs/Day Years Used Date Smoking Tobacco: Former Smokeless Tobacco: Never Alcohol Use Standard Drinks/Week Comments No 0 (1 standard drink = 0.6 oz pur e alcohol) Comments Unknown Sex and Gender Information Value Date Recorded Sex Assigned at Female 01/04/2025 5:14 PM EDT Legal Sex Female 12:02 AM EST Gender Identity Female 01/04/2025 5:14 PM EDT Sexual Orientation Straight 01/04/2025 5: 14 PM EDT Last Filed Vital Signs Vital Sign Reading Time Taken Comments Blood Pressure 139/73 01/04/2025 4:50 PM EDT Pulse 93 01/04/2025 4:50 PM EDT Temperature 36.4 C (97.5 F) 01/04/2025 2:08 PM EDT Respiratory Rate 16 01/04/2025 4:50 PM EDT Oxygen Saturation 95% 01/04/2025 4:50 PM EDT Inhaled Oxygen Concentration - - Weight 74.8 kg (165 lb) 01/04/2025 2:08 PM EDT Height 160 cm (5' 3 ) 01/04/2025 2:08 PM EDT Body Mass Index 29.23 01/04/2025 2:08 PM EDT Plan of Treatment Health Maintenance Due Date Last Done Comments DTaP,Tdap,and Td Vaccines (1 - Tdap) 01/27/1964 Zoster Vaccines (3 of 3) 05/27/2018 04/01/2018, 0602/2008 Pneumococcal Vaccine: 50+ Years (2 of 2 - PCV) 07/02/2018 07/02/2017, 10/13/2016 Cholesterol Screening (Lipid Panel) 09/19/2022 Falls Risk Assessment 09/19/2022 Medicare Annual Wellness Visit 09/19/2022 Osteoporosis Screening (Bone Density Screening) 09/19/2022 Social Influencers of Health Screening 09/19/2022 Depression Screening 10/17/2024 COVID-19 Vaccine ( season) 2025 07/09/2024, 08/04/2023, 03/24/2023, Additional history exists Influenza Vaccine (#1) 2025 , 07/11/2023, 06/09/2022, Additional history exists RSV Immunization Adult Patients Completed 09/16/2023 HIB Vaccines Aged Out No longer eligi ble based on patient's age to complete this topic HPV Vaccines Aged Out No longer eligi ble based on patient's age to complete this topic Hepatitis A Vaccines Aged Out No long er eligible based on patient's age to complete this topic Hepatitis B Vaccines Aged Out No long er eligible based on patient's age to complete this topic IPV Vaccines Aged Out No longer eligi ble based on patient's age to complete this topic MMR Vaccines Aged Out No longer eligi ble based on patient's age to complete this topic Meningococcal ACWY Vaccine Aged Out N o longer eligible based on patient's age to complete this topic Meningococcal B Vaccine Aged Out No l onger eligible based on patient's age to complete this topic RSV Immunization Patients Under 20 months Aged Out No longer eligible based on patient's age to complete this topic Varicella Vaccines Aged Out No longer eligible based on patient's age to complete this topic Insurance * Guarantor: Clement Quinones Account Type Relation to Patient Date of Phone Billing Address Personal/Family Self [address] [place] [address] [place] - [place] MEDICARE [facility] Care Teams Sports Book Board Attendant Relationship Specialty Start Date End Date Sami Villavicencio MD [address] [place] [id number] PCP - General Internal Medicine 01/04/25
--- OUTSIDE RECORDS SUMMARY | 2025-10-03 17:18 | XMS_ITS | Patient Health Record ---
Author Organization [facility] Address [address] [place] [address] Care Team Providers Care Pigment Processor Name Role Phone Roshan Gilman Primary Care Provider Reason For Referral No Information Plan Of Treatment No Information
--- OUTSIDE RECORDS SUMMARY | 2025-10-03 17:19 | XMS_ITS | Patient Health Record ---
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 Metabolic Panel [id number] Reviewed date:10/01/2025 01:14:24 PM Interpretation: Performing Lab:Jamari Harvey, [address] [facility], [place], Phone - [phone], Director - Andriy Notes/Report: Glucose 99 70-99 mg/dL BUN 21 8-27 mg/dL Creatinine 0.95 0.57-1.00 mg/dL eGFR 60 >59 mL/min/1.73 BUN/Creatinine Ratio 22 12-28 Sodium 140 134-144 mmol/L Potassium 4.9 3.5-5.2 mmol/L Chloride 102 96-106 mmol/L Carbon Dioxide, Total 33 20-29 mmol/L Calcium 10.3 8.7-10.3 mg/dL Protein, Total 6.9 6.0-8.5 g/dL Albumin 4.4 3.7-4.7 g/dL Globulin, Total 2.5 1.5-4.5 g/dL Bilirubin, Total 0.4 0.0-1.2 mg/dL Alkaline Phosphatase 96 48-129 IU/L AST (SGOT) 21 0-40 IU/L Lipid Panel With LDL/HDL Rat [id number] Reviewed date:10/01/2025 01:19:04 PM Interpretation: Performing Lab:Jamari Harvey, [address] [place] [address], Phone - [phone], Director - MDRebadry Notes/Report: Cholesterol, Total 273 100-199 mg/dL Triglycerides 84 0-149 mg/dL HDL Cholesterol 60 >39 mg/dL VLDL Cholesterol Jarred 14 5-40 mg/dL LDL Chol Calc ([facility]) 199 0-99 mg/dL LDL Calc Comment: Consider evaluating for Familial Hypercholesterolemia(FH), if clinically indicated. LDL/HDL Ratio 3.3 0.0-3.2 ratio LDL/HDL Ratio Men Women 1/2 Avg.Risk 1.0 1.5 Avg.Risk 3.6 3.2 2X Avg.Risk 6.2 5.0 3X Avg.Risk 8.0 6.1 Albumin/Creatinine Ratio,Uri [id number] Reviewed date:10/01/2025 01:16:03 PM Interpretation: Performing Lab:[facility] Harvey, [address] [place] [address], Phone - [phone], Director - Farheeny Notes/Report: Creatinine, Urine 158.6 Not Estab. mg/dL Albumin, Urine 22.0 Not Estab. ug/mL Alb/Creat Ratio 14 0-29 mg/g creat Normal: 0 - 29 Moderately increased: 30 - 300 Severely increased: >300 CBC with Diff, Platelet, NLR [id number] Reviewed date:10/01/2025 01:15:53 PM Interpretation: Performing Lab:[facility] Candice, [address] [facility], Phone - [phone], Director - Gianfrancodry Notes/Report: WBC 9.9 3.4-10.8 x10E3/uL RBC 4.26 3.77-5.28 x10E6/uL Hemoglobin 10.7 11.1-15.9 g/dL Hematocrit 35.1 34.0-46.6 % MCV 82 79-97 fL MCH 25.1 26.6-33.0 pg MCHC 30.5 31.5-35.7 g/dL RDW 13.0 11.7-15.4 % Platelets 520 150-450 x10E3/uL Neutrophils 65 Not Estab. % Lymphs 19 Not Estab. % Monocytes 13 Not Estab. % Eos 2 Not Estab. % Basos 1 Not Estab. % Neutrophils (Absolute) 6.5 1.4-7.0 x10E3/uL Lymphs (Absolute) 1.9 0.7-3.1 x10E3/uL Neut/Lymph Ratio 3.4 0.0-2.9 ratio Published COVID-19 studies suggest: Low likelihood of severe COVID-19 disease progression 0.0-2.9 High likelihood of severe COVID-19 disease progression >4.9 Monocytes(Absolute) 1.3 0.1-0.9 x10E3/uL Eos (Absolute) 0.2 0.0-0.4 x10E3/uL Baso (Absolute) 0.1 0.0-0.2 x10E3/uL Immature Granulocytes 0 Not Estab. % Immature Grans (Abs) 0.0 0.0-0.1 x10E3/uL Iron and [id number] Reviewed date:10/01/2025 01:17:40 PM Interpretation: Performing Lab:Jamari Harvey, [address] [place] [address], [place], Phone - [phone], Director - Andriy Notes/Report: Iron Bind.Cap.(TIBC) 459 250-450 ug/dL UIBC 437 118-369 ug/dL Iron 22 27-139 ug/dL Iron Saturation 5 15-55 % Reason For Referral No Information Medications Medication SIG (Take, Route, Frequency, Duration) Notes Start Date End Date Status Multivitamin - 1 tablet Orally Once a day Active Vitamin D 25 MCG (1000 UT) 1 tablet Oral ly Once a day Active valACYclovir HCl 1 GM 1 tablet Orally [...] capsule Orally Onc e a day Active LORazepam 1 MG 1 tablet at bedtime as needed Orally Once a day Active Lidocaine 5 % 1 patch remove after 12 hours Externally Once a day Active Fluticasone Propionate 50 MCG/ACT 1 spray in each nostril Nasally Twice a day Active Aspirin Childrens 81 MG 1 tablet Orally Once a day Active Problems Problem Type SNOMED Code ICD Code Onset Dates Problem Status W/U Status Risk Notes Problem Recurrent major depression in full remission (59773100) Major depressive disorder, recurrent, in full remission (F33.42) Active confirmed Problem Generalized anxiety disorder (12605446) Generalized anxiety disorder (F41.1) Active confirmed Problem Essential hypertension (37381598) Essential (primary) hypertension (I10) Active confirmed Problem Chronic obstructive pulmonary disease (21379721) Chronic obstructive pulmonary disease, unspecified (J44.9) Active confirmed Problem Spinal stenosis of lumbar region (61671022) Spinal stenosis, lumbosacral region (M48.07) Active confirmed Problem Iron deficiency anemia secondary to inadequate dietary iron intake (318321872) 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) Active confirmed Problem Mixed hyperlipidemia (208726062) Hyperlipidemia, mixed (E78.2) Active confirmed Vital Signs Heart Rate 104 /min 10/01/2025 Temperature 97.3 degrees Fahrenheit 10/01/2025 Blood pressure diastolic 80 mm Hg 10/01/2025 Oximetry 96 % 10/01/2025 Height 5'3'' in 10/01/2025 Blood pressure systolic 150 mm Hg 10/01/2025 Weight 166.3 lbs 10/01/2025 BMI 29.46 kg/m2 10/01/2025 Encounters Encounter Location Date Provider Diagnosis [address] [address] 10/01/2025 Tremayne Vasquezum Essential (primary) hypertension I10 ; Hyperlipidemia, mixed E78.2 ; Iron deficiency anemia secondary to inadequate dietary iron intake D50.8 ; Spinal stenosis, lumbosacral region M48.07 ; Chronic obstructive pulmonary disease, unspecified J44.9 ; Major depressive disorder, recurrent, in full remission F33.42 and Generalized anxiety disorder F41.[address] [place] [address] 09/19/2025 Aroosa Alam Essential (primary) hypertension I10 ; Hyperlipidemia, mixed E78.2 ; Iron deficiency anemia secondary to inadequate dietary iron intake D50.8 ; Spinal stenosis, lumbosacral region M48.07 ; Chronic obstructive pulmonary disease, unspecified J44.9 ; Major depressive disorder, recurrent, in full remission F33.42 and Generalized anxiety disorder F41.1 [facility] [address] [place] [address] 08/07/2025 Naomiemyron Garcia [facility] [address] [place] [address] 09/24/2025 SHARON GAMBOA [facility] [address] [place] [address] 09/27/2025 Elias Garcia Assessments Encounter Date Diagnosis (ICD Code) Assessment Notes Treatment Notes Treatment Clinical Notes Section Notes 09/19/2025 Essential (primary) hypertension (ICD-10 - I10) 80-year-old [...] PPI Lab slip has been given today 09/19/2025 Hyperlipidemia, mixed (ICD-10 - E78.2) 80-year-old lady [...] Lab slip has been given today 10/01/2025 Essential (primary) hypertension (ICD-10 - I10) [...] PPI Lab slip has been given today 09/19/2025 Iron deficiency anemia secondary to inadequate dietary [...] PPI Lab slip has been given today 09/19/2025 Spinal stenosis, lumbosacral region (ICD-10 - M48.07) [...] PPI Lab slip has been given today 09/19/2025 Chronic obstructive pulmonary disease, unspecified (ICD-10 - [...] PPI Lab slip has been given today 09/19/2025 Major depressive disorder, recurrent, in full remission [...] PPI Lab slip has been given today 09/19/2025 Generalized anxiety disorder (ICD-10 - F41.1) 80-year-old [...] has been given today Plan Of Treatment Next Appt Details Provider Name:Elias Garcia, 0 10/31/2025 02:30:00 PM, [address] [place] [address], [phone], Insurance Providers Payer Name Payer Address Payer Phone Subscriber Number Group Number Insured Name Patient Relationship to Insured Coverage Start Date Coverage End Date Medicare [address] [place] [id number] Arabella Souza Self - patient is the insured 9 [employer] ([facility]) [address] [place] [address] [phone] [id number] Souza, Arabella Self - patient is the insured 9 Medical (General) History Medical History History ICD Code hypertension Hyperlipidemia Chronic back pain GERD Anxiety disorder Depression COPD Surgical History Surgery Date(Month/Year) failed spinal surgery dr keller Bilateral knee replacement Appendectomy Bilateral cataract surgery
--- OUTSIDE RECORDS SUMMARY | 2025-10-03 17:19 | XMS_ITS | Clinical Summary ---
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 Not on clementina e 11/28/2023 Are you concerned about learning? Not on file 11/28/2023 No 11/28/2023 No 11/28/2023 Digital Access Answer Date Recorded No 11/28/2023 No 11/28/2023 Reliable internet access at home? Not on file 11/28/2023 Device with a working camera? Not on file Comments Unknown Sex and Gender Information Value Date Recorded Sex Assigned at Female 11/28/2023 2:15 PM EST Legal Sex Female 2:07 PM EST Gender Identity Female 11/28/2023 2:15 PM EST Sexual Orientation Straight 11/28/2023 2: 15 PM EST Plan of Treatment Health Maintenance Due Date Last Done Comments Adult Td,Tdap Booster 1945 DEPRESSION SCREENING 1956 PNEUMOCOCCAL VACCINES (50+ y ears) (1 of 1 - PCV) 01/27/1994 ZOSTER VACCINES (1 of 2) 01/27/1994 OSTEOPOROSIS SCREENING INITI AL (ONE-TIME) 01/27/2009 RSV VACCINE (1 - 1-dose 75+ series) 01/27/2019 INFLUENZA VACCINE (#1) 2025 COVID-19 VACCINE (2024-2 6 season) 2025 HEPATITIS A VACCINES Aged Out No long er eligible based on patient's age to complete this topic HIB VACCINES Aged Out No longer eligi ble based on patient's age to complete this topic MENINGOCOCCAL VACCINES (ACWY) Aged Out No longer eligible based on patient's age to complete this topic MENINGOCOCCAL VACCINES (B) Aged Out N o longer eligible based on patient's age to complete this topic Medical Devices Not on file Insurance MEDICARE PART A & B [facility] MEDICARE SUPPLEMENT MEDICARE PART A & B [facility] MEDICARE SUPPLEMENT MEDICARE PART A & B [facility] MEDICARE SUPPLEMENT MEDICARE PART A & B [employer] MEDICARE SUPPLEMENT MEDICARE PART A & B [employer] [place] [phone] MEDICARE PART A & B [facility] [employer] MEDICARE SUPPLEMENT Care Teams Surfboard Maker Relationship Specialty Start Date End Date Sami Villavicencio MD [address] [place] [address] PCP - General Internal Medicine 11/28/23 Additional Source Comments The information contained in this document represents components of the legal health record. It is not the complete legal health record.[facility]
== END 2025-10-03 14:02 | disposition home or self-care (01) ==
LOC: HO.HPS 13:13
PROVIDERS: PCP Internal Medicine; Visit Provider Hospitalist
DX: J43.2 Centrilobular emphysema (principal); R09.02 Hypoxemia; D50.9 Iron deficiency anemia, unspecified; J98.4 Other disorders of lung; R91.8 Other nonspecific abnormal finding of lung field
CPT/HCPCS: 99214

== ENCOUNTER → 2025-10-03 13:12 | Outpatient (BNVA) | payer MEDICARE, OTHER, SELFPAY | PROVIDERS: PCP Internal Medicine; Visit Provider Hospitalist | DX: J43.2 Centrilobular emphysema (principal); R09.02 Hypoxemia; D50.9 Iron deficiency anemia, unspecified; J98.4 Other disorders of lung; R91.8 Other nonspecific abnormal finding of lung field | CPT/HCPCS: 99212 ==